=== PATIENT | female | born 1975 | race Caucasian/White ===

== ENCOUNTER 2018-04-28 17:12 | Emergency (ER) | payer BC ==
--- OUTSIDE RECORDS SUMMARY | 2018-04-28 17:13 | XMS REPORT ---
:1975 [facility] [address] [place] [address] Dr. Corley [address] [place] [id number] Care Team Providers Name Role Phone Unavailable Unavailable Unavailable Problems This patient has no known problems. Allergies, Adverse Reactions, Alerts This patient has no known allergies or adverse reactions. Medications This patient has no known medications.
[2018-04-28 18:22] LABS: Absolute Monocytes 0.7 K/uL (0.1-1.3); Absolute Neutrophil 4.5 K/uL (1.8-8.0); Basophils % 1.2 % (0-1.3); Eosinophils % 2.6 % (0-4.4); Hematocrit 47.9 % (36.0-45.0); Lymphocytes % 26.5 % (15.3-44.8); MPV 10.7 fL (7.6-11.3); Monocytes % 9.9 % (3.3-12.3); RBC Red Blood Cell Count 5.26 M/uL (3.86-4.86)
[2018-04-28 18:23] LABS: Protime INR 0.96
--- NOTE | 2018-04-28 18:24 | RAD REPORT ---
EXAM DESCRIPTION: RAD - Chest Single View - 04/28/2018 6:16 pm CLINICAL HISTORY: Palpitations COMPARISON: May 2016 TECHNIQUE: AP portable chest image was obtained 1807 hours . FINDINGS: Detail is limited by body habitus and portable technique. No peripheral consolidation. Hea rt size is normal range. Upper lobe vasculature within normal limits. Right hilum is prominent but no t clearly different from comparison. Interstitial markings are mildly prominent. No measurable pleura l effusion and no pneumothorax. No acute bony abnormality seen. No acute aortic findings suspected. IMPRESSION: Prominent interstitial markings suggesting a minimal failure or volume overload. Findings are not substantially different from May 2016.
[2018-04-28 18:34] LABS: ALT/SGPT 31 U/L (12-78); AST/SGOT 24 U/L (15-37); Albumin 3.7 g/dL (3.4-5.0); Alkaline Phosphatase 86 U/L (45-117); BUN Blood Urea Nitrogen 11 mg/dL (7-18); Bicarbonate 30 mmol/L (21-32); Bilirubin Direct < 0.1 mg/dL (0-0.2); Bilirubin Total 0.3 mg/dL (0.2-1.0); Glucose Level 91 mg/dL (74-106); Magnesium 2.2 mg/dL (1.8-2.4); NT PRO-BNP 77 pg/mL (<125); Potassium 4.4 mmol/L (3.5-5.1); Sodium Level 140 mmol/L (136-145); Troponin (Emerg Dept Use Only) < 0.02 ng/mL (0.0-0.045)
[2018-04-28 19:01] LABS: Urine Blood NEGATIVE (NEG); Urine Glucose NEGATIVE (NEG); Urine Protein NEGATIVE (NEG); Urine Specific Gravity >1.030 (1.005-1.030); Urine pH 5.5 (5.0-7.0)
--- NOTE | 2018-04-28 19:35 | ER ---
Nurse's Notes [facility] Name: Avis Adame Age: 42 yrs Sex: Female : 1975 Arrival Date: 04/28/2018 Time: 17:14 Bed 17 Private MD: Rita Pate K Diagnosis: Palpitations Presentation: 04/28 17:24 Presenting complaint: Patient states: Was working at [employer], started having sg palpitations lasting for about an hour, reports feeling dizzy with the palpitations, has a sleep study scheduled for ruling out sleep apnea, pt denies N/V/D/Fever. Transition of care: patient was not received from another setting of care. Onset of symptoms was April 28, 2018. Risk Assessment: Do you want to hurt yourself or someone else? Patient reports no desire to harm self or others. Initial Sepsis Screen: Does the patient meet any 2 criteria? No. Patient's initial sepsis screen is negative. Does the patient have a suspected source of infection? No. Patient's initial sepsis screen is negative. Care prior to arrival: None. 17:24 Method Of Arrival: Ambulatory sg 17:24 Acuity: TOO 3 sg Triage Assessment: 17:30 General: Appears in no apparent distress. comfortable, obese, Behavior is calm, bp cooperative, appropriate for age. Pain: Denies pain. 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 - Social history:: Smoking status: Patient uses tobacco products, smokes one pack cigarettes per day. - Ebola Screening: : Patient negative for fever greater than or equal to 101.5 degrees Fahrenheit, and additional compatible Ebola Virus Disease symptoms Patient denies exposure to infectious person Patient denies travel to an Ebola-affected area in the 21 days before illness onset No symptoms or risks identified at this time. Screenin:00 Abuse screen: Denies threats or abuse. Denies injuries from another. bp 18:00 Nutritional screening: No deficits noted. Tuberculosis screening: No symptoms or risk bp factors identified. Fall Risk None identified. Assessment: 17:30 General: Appears in no apparent distress. comfortable, obese, Behavior is calm, bp cooperative, appropriate for age. Pain: Denies pain. Neuro: Level of Consciousness is awake, alert, obeys commands, Oriented to person, place, time, situation, Appropriate for age. Cardiovascular: No deficits noted. Cardiovascular: Rhythm is sinus rhythm. Respiratory: Airway is patent Respiratory effort is even, unlabored, Respiratory pattern is regular, symmetrical. GI: No signs and/or symptoms were reported involving the gastrointestinal system. : No signs and/or symptoms were reported regarding the genitourinary system. EENT: No deficits noted. Derm: No deficits noted. Musculoskeletal: Circulation, motion, and sensation intact. Range of motion: intact in all extremities. 19:09 Reassessment: Patient appears in no apparent distress at this time. Patient and/or jd3 family updated on plan of care and expected duration. Pain level reassessed. Patient is alert, oriented x 3, equal unlabored respirations, skin warm/dry/pink. Patient states feeling better. 19:45 Reassessment: Patient appears in no apparent distress at this time. Patient and/or jd3 family updated on plan of care and expected duration. Pain level reassessed. Patient is alert, oriented x 3, equal unlabored respirations, skin warm/dry/pink. pt reported understanding of discharge instructions. Patient states feeling better. Vital Signs: 17:26 BP 162 / 80; Pulse 87; Resp 17; Temp 97.7; Pulse Ox 100% on R/A; sg 18:48 BP 118 / 64; Pulse 74; Resp 15; Pulse Ox 98% ; bp 19:10 BP 121 / 82; Pulse 75; Resp 19 S; Pulse Ox 97% on R/A; jd3 ED Course: 17:14 Patient arrived in ED. mr 17:15 Rita Pate MD is Private Physician. mr 17:22 Dexter Preciado NP is PHCP. pm1 17:22 Junito Arevalo MD is Attending Physician. pm1 17:24 Arm band placed on. sg 17:26 Triage completed. sg 17:33 EKG done, by auto technician mechanic. reviewed by Dexter Preciado NP. sm3 17:35 Aubrey Medina, LUIS EDUARDO is Primary Nurse. bp 18:02 Initial lab(s) drawn, by in, sent to lab. Urine collected: clean catch specimen, clear. mh5 Inserted saline lock: 20 gauge in right antecubital area, using aseptic technique. Blood collected. 18:03 Patient has correct armband on for positive identification. Placed in gown. Bed in low mh5 position. Call light in reach. Side rails up X 1. Warm blanket given. conveyor monitor on. Pulse ox on. NIBP on. 18:03 Urine --Ancillary (enter results) Sent. 5 18:03 Urine Dipstick--Ancillary (enter results) Sent. [facility] 18:03 Basic Metabolic Panel Sent. [facility] 18:03 CBC with Diff Sent. [facility] 18:03 LFT's Sent. [facility] 18:03 Magnesium Sent. [facility] 18:03 NT PRO-BNP Sent. [facility] 18:03 PT-INR Sent. [facility] 18:03 Troponin (emerg Dept Use Only) Sent. [facility] 18:16 XRAY Chest (1 view) In Process Unspecified. EDMS 19:46 No provider procedures requiring assistance completed. IV discontinued, intact, jd3 bleeding controlled, No redness/swelling at site. Pressure dressing applied. Administered Medications: No medications were administered Outcome: 19:35 Discharge ordered by MD. pm1 19:46 Discharged to home ambulatory. jd3 19:46 Condition: stable 19:46 Discharge instructions given to patient, Instructed on discharge instructions, follow up and referral plans. Demonstrated understanding of instructions, follow-up care. 19:47 Patient left the ED. jd3 Signatures: Dispatcher [employer] EDMS Eder Ruvalcaba RN RN sg Rivera, Mary mr Dexter Preciado, FABIENNE BEAUTY CULTURE TEACHER pm1 Valentine Nieves [facility] Jakub Hayden RN RN jd3 Peltier, Brian, RN RN bp Montes, Shakira 3
--- NOTE | 2018-04-28 19:36 | EDPHYS ---
Physician Documentation [facility] Name: Avis Adame Age: 42 yrs Sex: Female : 1975 Arrival Date: 04/28/2018 Time: 17:14 Bed 17 Private MD: Rita Pate K ED Physician Juntio Arevalo HPI: 04/28 18:12 This 42 yrs old Female presents to ER via Ambulatory with complaints of pm1 Palpitations. 18:12 The patient presents with a history of heart skipping beats. Context: The symptoms pm1 occur at work. Onset: The symptoms/episode began/occurred 1 hour(s) ago. Duration: The patient or guardian reports a single episode, that is now resolved. Modifying factors: The symptoms are aggravated by possibly cough medications she has been taking for cough and cold symptoms. Drinking tea at work. Associated signs and symptoms: Pertinent positives: dizziness, Pertinent negatives: anxiety, chest pain, fever, nausea, SOB, vomiting. Severity of symptoms: in the emergency department the symptoms have resolved Pain is currently a 0 / 10. The patient has not experienced similar symptoms in the past. The patient has not recently seen a physician. 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 - Social history:: Smoking status: Patient uses tobacco products, smokes one pack cigarettes per day. - Ebola Screening: : Patient negative for fever greater than or equal to 101.5 degrees Fahrenheit, and additional compatible Ebola Virus Disease symptoms Patient denies exposure to infectious person Patient denies travel to an Ebola-affected area in the 21 days before illness onset No symptoms or risks identified at this time. ROS: 18:12 Constitutional: Negative for fever, chills, and weight loss, Eyes: Negative for injury, pm1 pain, redness, and discharge, ENT: Negative for injury, pain, and discharge, Neck: Negative for injury, pain, and swelling, Respiratory: Negative for shortness of breath, cough, wheezing, and pleuritic chest pain, Abdomen/GI: Negative for abdominal pain, nausea, vomiting, diarrhea, and constipation. 18:12 Back: Negative for injury and pain, : Negative for injury, bleeding, discharge, and swelling, MS/Extremity: Negative for injury and deformity, Skin: Negative for injury, rash, and discoloration, Neuro: Negative for headache, weakness, numbness, tingling, and seizure. 18:12 Cardiovascular: Positive for palpitations, Negative for chest pain, edema, orthopnea. Exam: 18:12 Constitutional: This is a well developed, well nourished patient who is awake, alert, pm1 and in no acute distress. Head/Face: Normocephalic, atraumatic. Eyes: Pupils equal round and reactive to light, extra-ocular motions intact. Lids and lashes normal. Conjunctiva and sclera are non-icteric and not injected. Cornea within normal limits. Periorbital areas with no swelling, redness, or edema. ENT: Nares patent. No nasal discharge, no septal abnormalities noted. Tympanic membranes are normal and external auditory canals are clear. Oropharynx with no redness, swelling, or masses, exudates, or evidence of obstruction, uvula midline. Mucous membranes moist. Neck: Trachea midline, no thyromegaly or masses palpated, and no cervical lymphadenopathy. Supple, full range of motion without nuchal rigidity, or vertebral point tenderness. No Meningismus. Chest/axilla: Normal chest wall appearance and motion. Nontender with no deformity. No lesions are appreciated. Cardiovascular: Regular rate and rhythm with a normal S1 and S2. No gallops, murmurs, or rubs. Normal PMI, no JVD. No pulse deficits. Respiratory: Lungs have equal breath sounds bilaterally, clear to auscultation and percussion. No rales, rhonchi or wheezes noted. No increased work of breathing, no retractions or nasal flaring. Abdomen/GI: Soft, non-tender, with normal bowel sounds. No distension or tympany. No guarding or rebound. No evidence of tenderness throughout. Back: No spinal tenderness. No costovertebral tenderness. Full range of motion. Skin: Warm, dry with normal turgor. Normal color with no rashes, no lesions, and no evidence of cellulitis. MS/ Extremity: Pulses equal, no cyanosis. Neurovascular intact. Full, normal range of motion. 18:12 Neuro: Orientation: is normal, Motor: is normal, moves all fours. 18:15 NSR Rate:78 pm1 Vital Signs: 17:26 BP 162 / 80; Pulse 87; Resp 17; Temp 97.7; Pulse Ox 100% on R/A; sg 18:48 BP 118 / 64; Pulse 74; Resp 15; Pulse Ox 98% ; bp 19:10 BP 121 / 82; Pulse 75; Resp 19 S; Pulse Ox 97% on R/A; jd3 MDM: 17:22 Patient medically screened. pm1 19:34 Data reviewed: vital signs. Data interpreted: Pulse oximetry: on room air is 97 %. pm1 Interpretation: normal. Counseling: I had a detailed discussion with the patient and/or guardian regarding: the historical points, exam findings, and any diagnostic results supporting the discharge/admit diagnosis, lab results, radiology results, the need for outpatient follow up, to return to the emergency department if symptoms worsen or persist or if there are any questions or concerns that arise at home. 04/28 17:27 Order name: Basic Metabolic Panel; Complete Time: 18:37 pm04/28 17:27 Order name: CBC with Diff 04/28 17:27 Order name: LFT's; Complete Time: 18:37 pm04/28 17:27 Order name: Magnesium; Complete Time: 18:37 pm04/28 17:27 Order name: NT PRO-BNP; Complete Time: 18:37 pm04/28 17:27 Order name: PT-INR; Complete Time: 18:37 04/28 17:27 Order name: Troponin (emerg Dept Use Only); Complete Time: 18:37 pm04/28 17:27 Order name: XRAY Chest (1 view); Complete Time: 18:37 pm04/28 17:27 Order name: EKG; Complete Time: 17:29 pm04/28 17:27 Order name: Cardiac monitoring; Complete Time: 17:46 pm04/28 17:27 Order name: EKG - Nurse/Tech; Complete Time: 17:46 04/28 17:47 Order name: Urine Dipstick--Ancillary (enter results); Complete Time: 19:20 em04/28 17:47 Order name: Urine --Ancillary (enter results); Complete Time: 19:20 04/28 18:38 Order name: CBC Smear Scan EDID 04/28 17:27 Order name: IV Saline Lock; Complete Time: 17:47 pm1 04/28 17:27 Order name: Labs collected and sent; Complete Time: 17:46 pm1 04/28 17:27 Order name: O2 Per Protocol; Complete Time: 17:46 pm1 04/28 17:27 Order name: O2 Sat Monitoring; Complete Time: 17:46 pm1 04/28 17:27 Order name: Urine Dipstick-Ancillary (obtain specimen); Complete Time: 17:45 pm1 04/28 17:27 Order name: Urine Test (obtain specimen); Complete Time: 17:45 pm1 Administered Medications: No medications were administered Disposition: 04/29 07:09 Co-signature as Attending Physician, Junito Arevalo MD I agree with the assessment and criss plan of care. Disposition: 04/28/18 19:35 Discharged to Home. Impression: Palpitations. - Condition is Stable. - Discharge Instructions: Holter Monitoring, Palpitations. - Medication Reconciliation Form, Thank You Letter form. - Follow up: Emergency Department; When: As needed; Reason: Worsening of condition. Follow up: Private Physician; When: 2 - 3 days; Reason: Recheck today's complaints, Continuance of care, Re-evaluation by your physician. - Problem is new. - Symptoms have improved. Signatures: Dispatcher [employer] [facility] Eder Ruvalcaba, Junito Guthrie RN, MD MD cha Marinas, Patrick, STITCHING MACHINE OPERATOR STITCHING MACHINE OPERATOR pm1 Jakub Hayden RN RN jd3 Corrections: (The following items were deleted from the chart) 04/28 19:47 19:35 04/28/2018 19:35 Discharged to Home. Impression: Palpitations. Condition is jd3 Stable. Forms are Medication Reconciliation Form, Thank You Letter, Antibiotic Education, Prescription Opioid Use. Follow up: Emergency Department; When: As needed; Reason: Worsening of condition. Follow up: Private Physician; When: 2 - 3 days; Reason: Recheck today's complaints, Continuance of care, Re-evaluation by your physician. Problem is new. Symptoms have improved. pm1
[2018-04-28 19:57] LABS: Platelet Estimate DECR; Urine White Blood Cell Casts OK
[2018-04-28 19:58] LABS: Blood Morphology Comment NOT SEEN (NOT SEEN); Platelets, Giant NOTED
[2018-04-28 21:37] VITALS: TEMP 97.7
[2018-04-28 21:39] VITALS: BP 121/82; O2SAT 97
--- NOTE | 2018-04-29 06:24 | EKG ---
Test Date: 2018-04-28 Test Time: 17:26:19 Mine Safety Engineer: EDUARD MEASUREMENT RESULTS: Intervals: Rate: 78 KS: 180 QRSD: 90 QT: 386 QTc: 440 [place]: P: 49 KS: 180 QRS: 85 T: 60 INTERPRETIVE STATEMENTS: Normal sinus rhythm Normal ECG Compared to ECG 06/06/2016 17:28:53 No significant changes Electronically Signed On 04-29-18 06:13:[address] SWEEPER by Bret Zee
== END 2018-04-28 19:47 | disposition home or self-care (01) ==
LOC: ER 17:12
DX: R00.2 Palpitations (principal); F17.210 Nicotine dependence, cigarettes, uncomplicated; E03.9 Hypothyroidism, unspecified; Z88.8 Allergy status to other drugs, medicaments and biological substances
CPT/HCPCS: 36415; 71045; 80048; 80076; 81003; 81025; 83735; 83880; 84484; 85025; 85610; 93005; 99284

== ENCOUNTER 2018-08-21 11:17 | Emergency (ER) | payer BC ==
--- OUTSIDE RECORDS SUMMARY | 2018-08-21 11:19 | XMS REPORT ---
:1975 [facility] [address] [place] [address] Dr. Corley [address] [place] [id number] Care Team Providers Name Role Phone Unavailable Unavailable Unavailable Problems This patient has no known problems. Allergies, Adverse Reactions, Alerts This patient has no known allergies or adverse reactions. Medications This patient has no known medications.
--- NOTE | 2018-08-21 12:46 | ER ---
Nurse's Notes [facility] Name: Avis Adame Age: 43 yrs Sex: Female : 1975 Arrival Date: 08/21/2018 Time: 11:18 Bed 17 Private MD: Rita Pate K Diagnosis: Cutaneous abscess of face-Post auricular with anterior and post auricular lymphadenopathy Presentation: 08/21 11:33 Presenting complaint: Patient states: "A week and a half ago I started getting lump aj1 right here (pt points to right side of neck) and then I got one behind my ear and my ear feels full, and it hurts when I lay on it. I've been having where I can feel my heart beating in my chest so I've been checking my blood pressure and its been high. I was going to wait until Wednesday to call my doctor but my blood pressure being high scared me" Reports that she has been having palpitations for the past 3 days. Transition of care: patient was not received from another setting of care. Onset of symptoms was August 17, 2017. Risk Assessment: Do you want to hurt yourself or someone else? Patient reports no desire to harm self or others. Initial Sepsis Screen: Does the patient meet any 2 criteria? No. Patient's initial sepsis screen is negative. Does the patient have a suspected source of infection? No. Patient's initial sepsis screen is negative. Care prior to arrival: None. 11:33 Method Of Arrival: Ambulatory aj1 11:33 Acuity: TOO 3 aj1 Triage Assessment: 11:37 General: Appears in no apparent distress. uncomfortable, Behavior is cooperative, aj1 agitated. Pain: Complains of pain in right ear. EENT: Reports ear pain. Neuro: Level of Consciousness is awake, alert, obeys commands. Cardiovascular: Reports palpitations, Denies chest pain, Patient's skin is warm and dry. Respiratory: Airway is patent Respiratory effort is even, unlabored, Respiratory pattern is regular, symmetrical. 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 - Social history:: Smoking status: Patient uses tobacco products, smokes one pack cigarettes per day. - Ebola Screening: : Patient denies travel to an Ebola-affected area in the 21 days before illness onset. Screenin:11 Abuse screen: Denies threats or abuse. Nutritional screening: No deficits noted. em Tuberculosis screening: No symptoms or risk factors identified. Fall Risk None identified. Assessment: 13:11 General: Appears in no apparent distress. comfortable, Behavior is calm, cooperative, em Denies fever. Pain: Complains of pain in right ear Pain currently is 5 out of 10 on a pain scale. Pain began 1 day ago. Neuro: Level of Consciousness is awake, alert, obeys commands, Oriented to person, place, time, situation, Moves all extremities. Gait is steady, Speech is normal, Facial symmetry appears normal. Cardiovascular: Capillary refill < 3 seconds Patient's skin is warm and dry. Respiratory: Airway is patent Respiratory effort is even, unlabored, Respiratory pattern is regular, symmetrical. GI: Patient currently denies nausea, vomiting. Derm: Skin is intact, is healthy with good turgor, Skin is pink, warm \\T\\ dry. Wound noted right ear. Musculoskeletal: Capillary refill < 3 seconds, Range of motion: intact in all extremities. 13:15 General: The previous assessment is accurate. Call light remains within reach. . ss Vital Signs: 11:37 BP 160 / 99; Pulse 88; Resp 18; Temp 98.4; Pulse Ox 98% on R/A; Weight 126.1 kg (R); aj1 Height 5 ft. 7 in. (170.18 cm) (R); Pain 5/10; 13:11 BP 134 / 83; Pulse 78; Resp 18; Pulse Ox 99% on R/A; em 11:37 Body Mass Index 43.54 (126.10 kg, 170.18 cm) aj1 ED Course: 11:18 Patient arrived in ED. as 11:19 Rita Pate MD is Private Physician. as 11:36 Triage completed. aj1 11:37 Arm band placed on Patient placed in waiting room. EKG completed in triage. Results aj1 shown to MD. 12:18 [facility] snw 12:18 Junito Arevalo MD is Attending Physician. snw 12:43 Chau Green LVN is Primary Nurse. em 12:44 Rita Pate MD is Referral Physician. snw 13:11 Patient has correct armband on for positive identification. Bed in low position. em 13:11 No provider procedures requiring assistance completed. Patient did not have IV access em during this emergency room visit. Administered Medications: 13:11 Drug: Clindamycin 300 mg Route: PO; em 13:12 Follow up: Response: Medication administered at discharge. em Outcome: 12:45 Discharge ordered by MD. snw 13:11 Discharged to home ambulatory. em 13:11 Condition: good 13:11 Discharge instructions given to patient, Instructed on discharge instructions, follow up and referral plans. medication usage, Demonstrated understanding of instructions, follow-up care, medications, Prescriptions given X 1. 13:27 Patient left the ED. em Signatures: Noemí Gomez, RN RN aj1 Ruth Cruz FNP-Jorge HR SHARED SERVICES CONSULTANT-Cs[facility] Chau Green LVN LVN em Keyana Nieves Shelby, RN RN ss
--- NOTE | 2018-08-21 12:46 | EDPHYS ---
Physician Documentation [facility] Name: Avis Adame Age: 43 yrs Sex: Female : 1975 Arrival Date: 08/21/2018 Time: 11:18 Bed 17 Private MD: Rita Pate K ED Physician Junito Arevalo HPI: 08/21 14:32 This 43 yrs old Female presents to ER via Ambulatory with complaints of Ear snw Pain, High Blood Pressure. 14:32 The patient presents with pain, moderate. The complaints affect the right ear. Onset: snw The symptoms/episode began/occurred suddenly. Associated signs and symptoms: Pertinent positives: noted knot to area behind ear, down right neck. Pt states she has been nervous and having palpitations.. Severity of symptoms: At their worst the symptoms were moderate. The patient has not experienced similar symptoms in the past. It is unknown whether or not the patient has recently seen a physician. encouraged blood pressure log, smoking cessation. 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 - Social history:: Smoking status: Patient uses tobacco products, smokes one pack cigarettes per day. - Ebola Screening: : Patient denies travel to an Ebola-affected area in the 21 days before illness onset. ROS: 14:20 Constitutional: Negative for fever, chills, and weight loss, Eyes: Negative for injury, snw pain, redness, and discharge, Cardiovascular: Negative for chest pain, palpitations, and edema, Respiratory: Negative for shortness of breath, cough, wheezing, and pleuritic chest pain, Abdomen/GI: Negative for abdominal pain, nausea, vomiting, diarrhea, and constipation, Back: Negative for injury and pain, : Negative for injury, bleeding, discharge, and swelling, MS/Extremity: Negative for injury and deformity, Skin: Negative for injury, rash, and discoloration, Neuro: Negative for headache, weakness, numbness, tingling, and seizure, Psych: Negative for depression, anxiety, suicide ideation, homicidal ideation, and hallucinations. 14:20 Neck: Positive for swollen nodes, of the right anterior lymphadenopathy and right post auricular lymph node. Exam: 14:20 Constitutional: This is a well developed, well nourished patient who is awake, alert, snw and in no acute distress. Head/Face: Normocephalic, atraumatic. Eyes: Pupils equal round and reactive to light, extra-ocular motions intact. Lids and lashes normal. Conjunctiva and sclera are non-icteric and not injected. Cornea within normal limits. Periorbital areas with no swelling, redness, or edema. Neck: Trachea midline, no thyromegaly or masses palpated, and no cervical lymphadenopathy. Supple, full range of motion without nuchal rigidity, or vertebral point tenderness. No Meningismus. Chest/axilla: Normal chest wall appearance and motion. Nontender with no deformity. No lesions are appreciated. Cardiovascular: Regular rate and rhythm with a normal S1 and S2. No gallops, murmurs, or rubs. Normal PMI, no JVD. No pulse deficits. Respiratory: Lungs have equal breath sounds bilaterally, clear to auscultation and percussion. No rales, rhonchi or wheezes noted. No increased work of breathing, no retractions or nasal flaring. Abdomen/GI: Soft, non-tender, with normal bowel sounds. No distension or tympany. No guarding or rebound. No evidence of tenderness throughout. Back: No spinal tenderness. No costovertebral tenderness. Full range of motion. Skin: Warm, dry with normal turgor. Normal color with no rashes, no lesions, and no evidence of cellulitis. MS/ Extremity: Pulses equal, no cyanosis. Neurovascular intact. Full, normal range of motion. Neuro: Awake and alert, GCS 15, oriented to person, place, time, and situation. Cranial nerves II-XII grossly intact. Motor strength 5/5 in all extremities. Sensory grossly intact. Cerebellar exam normal. Normal gait. 14:20 ENT: External ear(s): abscess, that is small, posterior pinna of right ear, + post auricular and anterior cervical lymphadenopathy, TM's: dullness, loss of bony landmarks, that is moderate, on the right, Nose: is normal, Mouth: is normal, Dental exam: normal, Voice: is normal. 14:20 Psych: Behavior/mood is anxious, Affect is calm, Oriented to person, place, time. Vital Signs: 11:37 BP 160 / 99; Pulse 88; Resp 18; Temp 98.4; Pulse Ox 98% on R/A; Weight 126.1 kg (R); aj1 Height 5 ft. 7 in. (170.18 cm) (R); Pain 5/10; 13:11 BP 134 / 83; Pulse 78; Resp 18; Pulse Ox 99% on R/A; em 11:37 Body Mass Index 43.54 (126.10 kg, 170.18 cm) aj1 Procedures: 14:32 I \T\ D: Incision and drainage was performed for an abscess of the right posterior pinna snw Prepped with hibiclens. Anesthetized with nothing. Incised with 18g needle. Drained moderate amount large amount purulent fluid. Dressing: sterile 4x4 gauze, the patient tolerated the procedure well. MDM: 12:30 Patient medically screened. snw 14:31 Data reviewed: vital signs, nurses notes. Data interpreted: Pulse oximetry: on room air snw is 99 %. Interpretation: normal. Counseling: I had a detailed discussion with the patient and/or guardian regarding: the historical points, exam findings, and any diagnostic results supporting the discharge/admit diagnosis, the presence of at least one elevated blood pressure reading (>120/80) during this emergency department visit, the need for outpatient follow up, to return to the emergency department if symptoms worsen or persist or if there are any questions or concerns that arise at home. Special discussion: I have referred the patient to see his PCP for further evaluation of high blood pressure. I discussed in detail with the patient the higher chance of wound infection based on his presenting history. Based on the history and exam findings, there is no indication for further emergent testing or inpatient evaluation. I discussed with the patient/guardian the need to see the primary care provider for further evaluation of the symptoms. 08/21 12:43 Order name: Wound dressing; Complete Time: 13:12 snw Administered Medications: 13:11 Drug: Clindamycin 300 mg Route: PO; em 13:12 Follow up: Response: Medication administered at discharge. em Disposition: 08/22 06:47 Co-signature as Attending Physician, Junito Arevalo MD I agree with the assessment and criss plan of care. Disposition: 08/21/18 12:45 Discharged to Home. Impression: Cutaneous abscess of face - Post auricular with anterior and post auricular lymphadenopathy. - Condition is Stable. - Discharge Instructions: Skin Abscess, Fat and Cholesterol Restricted Diet, Otitis Media, Adult, Hypertension, Steps to Quit Smoking, Smoking Hazards, Heat Therapy, Managing Your Hypertension. - Prescriptions for Clindamycin HCl 300 mg Oral Capsule - take 1 capsule by ORAL route every 6 hours for 10 days; 40 capsule. - Medication Reconciliation Form, Thank You Letter, Antibiotic Education, Prescription Opioid Use form. - Follow up: Rita Pate MD; When: 2 - 3 days; Reason: Recheck today's complaints, Continuance of care, Re-evaluation by your physician. Follow up: Emergency Department; When: As needed; Reason: Worsening of condition. - Notes: Please keep blood pressure log. Signatures: Noemí Gomez RN RN Junito Castro MD MD cha Therrien, Shelly, ASSISTED LIVING HOME DIRECTOR-C ASSISTED LIVING HOME DIRECTOR-Csnw Chau Green, OPERATIONS ADMINISTRATOR OPERATIONS ADMINISTRATOR em Corrections: (The following items were deleted from the chart) 08/21 13:27 12:45 08/21/2018 12:45 Discharged to Home. Impression: Cutaneous abscess of face - Post em auricular with anterior and post auricular lymphadenopathy. Condition is Stable. Forms are Medication Reconciliation Form, Thank You Letter, Antibiotic Education, Prescription Opioid Use. Follow up: Rita Pate; When: 2 - 3 days; Reason: Recheck today's complaints, Continuance of care, Re-evaluation by your physician. Follow up: Emergency Department; When: As needed; Reason: Worsening of condition. snw
[2018-08-21] MEDS ORDERED: CLINDAMYCIN HCL 150 MG CAP ONE (13:12)
[2018-08-21 13:43] VITALS: TEMP 98.4
[2018-08-21 13:45] VITALS: BP 134/83; O2SAT 99
--- NOTE | 2018-08-22 08:48 | EKG ---
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
== END 2018-08-21 13:27 | disposition home or self-care (01) ==
LOC: ER 11:17
PROC: 0J910ZZ Drainage of Face Subcutaneous Tissue and Fascia, Open Approach (ICD-10-PCS; principal; 2018-08-21)
DX: R59.0 Localized enlarged lymph nodes (principal); L02.01 Cutaneous abscess of face
CPT/HCPCS: 93005; 99283

== ENCOUNTER 2019-06-27 21:04 | Emergency (ER) | payer BC ==
--- OUTSIDE RECORDS SUMMARY | 2019-06-27 21:06 | XMS REPORT ---
:1975 [facility] Address [address] [place] [address] Dr. Corley [address] [place] [address] Care Team Providers Name Role Phone Unavailable Unavailable Unavailable Problems This patient has no known problems. Allergies, Adverse Reactions, Alerts This patient has no known allergies or adverse reactions. Medications This patient has no known medications.
--- OUTSIDE RECORDS SUMMARY | 2019-06-27 21:06 | XMS REPORT | Summary of Care ---
:1975 Author Organization [facility] Address [address] [place] [address] Care Team Providers Name Role Phone Matthew Pate Primary Care Provider Reason for Visit Reason Comments Notification The patient would like her CPAP machine moved up from an 11 to 12 or 13. Encounter Details Date Type Department Care Team Description 11/25/2018 Telephone [facility] ADC Shayla Armstrong Notification ([facility] [address] patient would like her [address] [place] [address] Dr., Salo 106 CPAP machine moved up [address] [place] [address] from an 11 to 12 or 13. [place], [place] [phone] ) [phone] [phone] Allergies No Known Allergiesdocumented as of this encounter (statuses as of 11/25/2018) Medications No known medicationsdocumented as of this encounter (statuses as of 11/25/2018) Active Problems Not on filedocumented as of this encounter (statuses as of 11/25/2018) Social History Tobacco Use Types Packs/Day Years Used Date Never Smoker Smokeless Tobacco: Never Used Alcohol Use Drinks/Week oz/Week Comments No Sex Assigned at Date Recorded Not on file Job Start Date Occupation Industry Not on file Not on file Not on file Travel History Travel Start Travel End No recent travel history available. documented as of this encounter Last Filed Vital Signs Not on filedocumented in this encounter Plan of Treatment Health Maintenance Due Date Last Done Comments DTaP,Tdap,and Td Vaccines ( - 1993 Tdap) PAP SMEAR 07/05/1995 MAMMOGRAM 2014 INFLUENZA VACCINE 12/18/2018 PNEUMOCOCCAL 0-64 YEARS COMBINED Aged Out No longer eligible based on SERIES patient's age to complete this topic documented as of this encounter Results Not on filedocumented in this encounter Insurance Payer Benefit Plan Subscriber ID Effective Dates Phone Address Type / Group BCBS OF [facility] [id number] 2017-Juanito [phone] [address] PPO/POS [place] t [id number] [place] [address] documented as of this encounter
--- OUTSIDE RECORDS SUMMARY | 2019-06-27 21:06 | XMS REPORT | Summary of Care ---
:1975 Author Organization [facility] Health Address [address] [place] [address] Care Team Providers Name Role Phone Unavailable Primary Care Provider Unavailable Encounter Details Date Type Department Care Team Description 11/29/2018 Orders Only [facility] Doctor Unassigned, No [address] [facility] [place] [address] [address] [place] [address] Allergies No Known Allergiesdocumented as of this encounter (statuses as of 11/29/2018) Medications No known medicationsdocumented as of this encounter (statuses as of 11/29/2018) Active Problems Not on filedocumented as of this encounter (statuses as of 11/29/2018) Social History Tobacco Use Types Packs/Day Years [...] Date Last Done Comments DTaP,Tdap,and Td Vaccines (1 - 1993 Tdap) PAP SMEAR 07/05/1995 MAMMOGRAM 2014 INFLUENZA VACCINE 12/18/2018 PNEUMOCOCCAL 0-64 YEARS COMBINED Aged Out No longer eligible based on SERIES patient's age to complete this topic documented as of this encounter Procedures Procedure Name Priority Date/Time Associated Diagnosis Comments DME/SUPPLY JUSTIFICATION Routine 11/29/2018 12:01 AM CDT documented in this encounter Results Not on filedocumented in this encounter Insurance Payer Benefit Plan Subscriber ID Effective Dates Phone Address Type / Group [id number] 2017-Juanito [phone] [address] PPO/POS [place] t [id number] [place] [address] documented as of this encounter
--- OUTSIDE RECORDS SUMMARY | 2019-06-27 21:06 | XMS REPORT | Summary of Care ---
:1975 Author Organization [facility] Address [address] [place] [address] Care Team Providers Name Role Phone Unavailable Primary Care Provider Unavailable Reason for Visit Reason Comments Notification The patient would like her CPAP machine moved up from an 11 to 12 or 13. Encounter Details Date Type Department Care Team Description 11/25/2018 Telephone [facility] [employer] ADC Shayla Armstrong Notification ([facility] [address] [place] [address] Dr patient would like her [address] [place] [address] DrHolger, [address] 106 CPAP machine moved up [address] [place] [address] from an 11 to 12 or 13. [place], [place] [phone] ) [phone] Allergies No Known Allergiesdocumented as of this [...] Phone Address Type / Group BCBS OF BCBS [facility] [id number] 2017-Juanito [phone] [address] PPO/POS [place] t [id number] [place] [address] documented as of this encounter
--- OUTSIDE RECORDS SUMMARY | 2019-06-27 21:06 | XMS REPORT | Summary of Care ---
:1975 Author Organization [facility] Address [address] [place] [address] Care Team Providers Name Role Phone Unavailable Primary Care Provider Unavailable Reason for Visit Reason Comments Notification The patient would like her CPAP machine moved up from an 11 to 12 or 13. Encounter Details Date Type Department Care Team Description 11/25/2018 Telephone [facility] [employer] ADC Shayla Armstrong Notification ([facility] [address] [place] [address] Dr patient would like her [address] [place] [address] DrHolger, Salo 106 CPAP machine moved up [address] [place] [address] from an 11 to 12 or 13. [place], [place] [phone] ) [phone] Allergies No Known Allergiesdocumented as of this [...] Address Type / Group BCBS OF BCBS [facility] [id number] 2017-Juanito [phone] [address] PPO/POS [place] t [id number] [place] [address] documented as of this encounter
[2019-06-27 22:12] LABS: Protime INR 0.91
--- NOTE | 2019-06-27 22:37 | RAD REPORT ---
EXAM DESCRIPTION: RAD - Chest Single View - 06/27/2019 9:56 pm CLINICAL HISTORY: PAIN Chest pain. COMPARISON: Chest Single View dated 04/28/2018; Chest Single View dated 06/06/2016; Chest Single View dated 03/30/2016; Chest Single View dated 03/28/2016 FINDINGS: Portable technique limits examination quality. The lungs are grossly clear. The heart is normal in size. No displaced fractures. IMPRESSION: No acute intrathoracic process suspected.
[2019-06-27 23:23] LABS: Absolute Lymphocytes (CBC) 4.2 K/uL (0.7-4.9); Basophils % 1.2 % (0-1.3); Hematocrit 44.4 % (36.0-45.0); Lymphocytes % 37.3 % (15.3-44.8); MPV 11.6 fL (7.6-11.3); RBC Red Blood Cell Count 4.91 M/uL (3.86-4.86)
[2019-06-27 23:39] LABS: ALT/SGPT 32 U/L (12-78); AST/SGOT 23 U/L (15-37); Albumin 3.3 g/dL (3.4-5.0); Alkaline Phosphatase 77 U/L (45-117); BUN Blood Urea Nitrogen 10 mg/dL (7-18); Bicarbonate 30 mmol/L (21-32); Bilirubin Direct < 0.1 mg/dL (0-0.2); Bilirubin Total 0.2 mg/dL (0.2-1.0); Glucose Level 115 mg/dL (74-106); Magnesium 2.1 mg/dL (1.8-2.4); NT PRO-BNP 57 pg/mL (<125); Potassium 4.4 mmol/L (3.5-5.1); Protein, Total 7.2 g/dL (6.4-8.2); Sodium Level 140 mmol/L (136-145); Troponin (Emerg Dept Use Only) < 0.02 ng/mL (0.0-0.045)
--- NOTE | 2019-06-28 01:08 | ER ---
Nurse's Notes [facility] Name: Avis Adame Age: 43 yrs Sex: Female : 1975 Arrival Date: 06/27/2019 Time: 21:04 Bed 20 Private MD: Diagnosis: Presentation: 06/26 21:20 Chief complaint: Patient states: "I have been having chest pain for 3 days now and have jd3 been feeling more and more weak.". Coronavirus screen: The patient has NOT traveled to a country currently being monitored by the [facility] within the last 14 days. The patient has NOT had contact with any known and/or suspected case of coronavirus. Proceed with normal triage procedures. Ebola Screen: Patient negative for fever greater than or equal to 101.5 degrees Fahrenheit, and additional compatible Ebola Virus Disease symptoms. Initial Sepsis Screen: Does the patient meet any 2 criteria? No. Patient's initial sepsis screen is negative. Does the patient have a suspected source of infection? No. Patient's initial sepsis screen is negative. Risk Assessment: Do you want to hurt yourself or someone else? Patient reports no desire to harm self or others. 21:20 Method Of Arrival: Ambulatory j 21:20 Acuity: TOO 3 jd3 22:29 Onset of symptoms was June 27, 2019. 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 - Social history:: Smoking status: Patient reports the use of cigarette tobacco products, smokes one pack cigarettes per day. Screenin:28 Abuse screen: Denies threats or abuse. Nutritional screening: No deficits noted. jd3 Tuberculosis screening: No symptoms or risk factors identified. Fall Risk IV access (20 points). Ambulatory Aid- None/Bed Rest/Nurse Assist (0 pts). Gait- Normal/Bed Rest/Wheelchair (0 pts) Mental Status- Oriented to own ability (0 pts). Total Mcmillna Fall Scale indicates No Risk (0-24 pts). Assessment: 22:26 General: Appears in no apparent distress. uncomfortable, Behavior is calm, cooperative, jd3 appropriate for age. Pain: Complains of pain in chest Pain does not radiate. Pain began 2-3 days ago. Neuro: Level of Consciousness is awake, alert, obeys commands, Oriented to person, place, time, situation. Cardiovascular: Reports chest pain, Heart tones S1 S2 present Capillary refill < 3 seconds Patient's skin is warm and dry. Rhythm is regular. Respiratory: Airway is patent Respiratory effort is even, unlabored, Respiratory pattern is regular, symmetrical, Denies cough, shortness of breath. GI: No signs and/or symptoms were reported involving the gastrointestinal system. : No signs and/or symptoms were reported regarding the genitourinary system. EENT: No signs and/or symptoms were reported regarding the EENT system. Derm: Skin is intact, Skin is dry, Skin is normal, Skin temperature is warm. Musculoskeletal: Circulation, motion, and sensation intact. Range of motion: intact in all extremities. 23:41 Reassessment: Patient appears in no apparent distress at this time. No changes from jd3 previously documented assessment. Patient and/or family updated on plan of care and expected duration. Pain level reassessed. Patient is alert, oriented x 3, equal unlabored respirations, skin warm/dry/pink. 06/27 00:46 Reassessment: Patient appears in no apparent distress at this time. Patient and/or jd3 family updated on plan of care and expected duration. Pain level reassessed. Patient is alert, oriented x 3, equal unlabored respirations, skin warm/dry/pink. awaiting disposition. 01:04 Reassessment: Patient appears in no apparent distress at this time. Patient and/or jd3 family updated on plan of care and expected duration. Pain level reassessed. Patient is alert, oriented x 3, equal unlabored respirations, skin warm/dry/pink. pt reporting wanting to go home. provider notified. AMA form signed. Vital Signs: 06/26 21:22 Weight 117.93 kg (R); Height 5 ft. 8 in. (172.72 cm) (R); Pain 5/10; jd3 21:30 BP 133 / 69; Pulse 75; Resp 19; Temp 98.3(O); Pulse Ox 98% ; lt1 22:26 BP 130 / 66; Pulse 76; Resp 20 S; Pulse Ox 95% on R/A; Pain /10; jd3 23:42 BP 124 / 72; Pulse 74; Resp 18 S; Pulse Ox 96% on R/A; jd3 06/27 00:47 BP 130 / 75; Pulse 62; Resp 17 S; Pulse Ox 97% on R/A; jd3 06/26 21:22 Body Mass Index 39.53 (117.93 kg, 172.72 cm) jd3 ED Course: 06/26 21:04 Patient arrived in ED. cl3 21:15 Jose East MD is Attending Physician. tw4 21:20 Triage completed. jd3 21:23 Arm band placed on. EKG completed in triage. Results shown to MD. jd3 21:54 Initial lab(s) drawn, by me, sent to lab. Inserted saline lock: 22 gauge in right lt1 forearm, using aseptic technique. 21:57 XRAY Chest (1 view) In Process Unspecified. EDMS 22:18 Jakub Hayden, RN is Primary Nurse. jd3 22:29 Patient has correct armband on for positive identification. Placed in gown. Bed in low jd3 position. Call light in reach. Side rails up X 1. Adult w/ patient. cardiac monitor technician on. Pulse ox on. NIBP on. 22:29 Patient maintains SpO2 saturation greater than 95% on room air. jd3 06/27 01:05 No provider procedures requiring assistance completed. IV discontinued, intact, jd3 bleeding controlled, No redness/swelling at site. Pressure dressing applied. Administered Medications: No medications were administered Outcome: 01:05 AMA AMA form signed jd3 01:05 Condition: stable 01:05 Instructed on follow up and referral plans. Demonstrated understanding of follow-up care. 01:06 Patient left the ED. jd3 Signatures: Dispatcher [employer] EDJakub Galarza, LUIS EDUARDO RN j Jose East MD MD tw4 Ketty Escobar lt1 Mini Quintanilla cl3 Corrections: (The following items were deleted from the chart) 00:48 00:47 BP 124 / 72; Pulse 62bpm; Resp 17bpm; Spontaneous; Pulse Ox 97% RA; jd3 jd3
--- NOTE | 2019-06-28 01:09 | EDPHYS ---
Physician Documentation [facility] Name: Avis Adame Age: 43 yrs Sex: Female : 1975 Arrival Date: 06/27/2019 Time: 21:04 Bed 20 Private MD: ED Physician Jose East HPI: 06/26 21:19 This 43 yrs old Female presents to ER via Unassigned with complaints of Chest tw4 Pain. 21:19 The patient or guardian reports chest pain that is located primarily in the anterior tw4 chest wall, left. Onset: 3 day(s) ago. The pain does not radiate. Associated signs and symptoms: The patient has no apparent associated signs or symptoms. The chest pain is described as dull. Duration: The patient or guardian reports a single episode. Modifying factors: The symptoms are alleviated by nothing. the symptoms are aggravated by nothing. Severity of pain: At its worst the pain was mild in the emergency department the pain is unchanged. 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 - Social history:: Smoking status: Patient reports the use of cigarette tobacco products, smokes one pack cigarettes per day. ROS: 21:19 Constitutional: Negative for fever, chills, and weight loss, Eyes: Negative for injury, tw4 pain, redness, and discharge, Neck: Negative for injury, pain, and swelling, Respiratory: Negative for shortness of breath, cough, wheezing, and pleuritic chest pain, Abdomen/GI: Negative for abdominal pain, nausea, vomiting, diarrhea, and constipation, Back: Negative for injury and pain, MS/Extremity: Negative for injury and deformity, Skin: Negative for injury, rash, and discoloration, Neuro: Negative for headache, weakness, numbness, tingling, and seizure. 21:19 Cardiovascular: Positive for chest pain, Negative for edema, orthopnea, palpitations, paroxysmal nocturnal dyspnea. Exam: 21:19 Constitutional: This is a well developed, well nourished patient who is awake, alert, tw4 and in no acute distress. Head/Face: Normocephalic, atraumatic. Chest/axilla: Normal chest wall appearance and motion. Nontender with no deformity. No lesions are appreciated. Cardiovascular: Regular rate and rhythm with a normal S1 and S2. No gallops, murmurs, or rubs. Normal PMI, no JVD. No pulse deficits. Respiratory: Lungs have equal breath sounds bilaterally, clear to auscultation and percussion. No rales, rhonchi or wheezes noted. No increased work of breathing, no retractions or nasal flaring. Abdomen/GI: Soft, non-tender, with normal bowel sounds. No distension or tympany. No guarding or rebound. No evidence of tenderness throughout. Back: No spinal tenderness. No costovertebral tenderness. Full range of motion. Skin: Warm, dry with normal turgor. Normal color with no rashes, no lesions, and no evidence of cellulitis. MS/ Extremity: Pulses equal, no cyanosis. Neurovascular intact. Full, normal range of motion. Neuro: Awake and alert, GCS 15, oriented to person, place, time, and situation. Cranial nerves II-XII grossly intact. Motor strength 5/5 in all extremities. Sensory grossly intact. Cerebellar exam normal. Normal gait. Vital Signs: 21:22 Weight 117.93 kg (R); Height 5 ft. 8 in. (172.72 cm) (R); Pain 5/10; jd3 21:30 BP 133 / 69; Pulse 75; Resp 19; Temp 98.3(O); Pulse Ox 98% ; lt1 22:26 BP 130 / 66; Pulse 76; Resp 20 S; Pulse Ox 95% on R/A; Pain 2/10; jd3 23:42 BP 124 / 72; Pulse 74; Resp 18 S; Pulse Ox 96% on R/A; jd3 06/27 00:47 BP 130 / 75; Pulse 62; Resp 17 S; Pulse Ox 97% on R/A; jd3 06/26 21:22 Body Mass Index 39.53 (117.93 kg, 172.72 cm) jd3 MDM: 06/26 21:15 Patient medically screened. tw4 21:19 Differential diagnosis: acute pericarditis, chest wall pain, costochondritis, tw4 esophagitis, gastritis, gastroesophageal reflux disease (GERD), pancreatitis, peptic ulcer disease, pulmonary embolus, stable angina, unstable angina. HEART Score: History: Slightly Suspicious (0), ECG: Normal (0), Age: < or = 45 years (0), Risk Factors: 1 or 2 risk factors (1), Troponin: < or = 1 x Normal Limit (0), Total Score = 2. Data reviewed: vital signs, nurses notes. Data interpreted: Pulse oximetry: Interpretation: normal. Counseling: I had a detailed discussion with the patient and/or guardian regarding: the historical points, exam findings, and any diagnostic results supporting the discharge/admit diagnosis. 06/27 06:14 The patient was given aspirin in the Emergency Department. Refusal of service: The tw4 patient/guardian displays adequate decision making capability and despite a detailed discussion of alternatives, benefits, risks, and consequences refuses: Admission to the hospital for further work-up and treatment, all lab tests. 06/26 21:31 Order name: Basic Metabolic Panel; Complete Time: 00:12 06/27 00:12 Interpretation: Normal except: CL 109; GLUC 115; GFR 60. 06/26 21:31 Order name: CBC with Diff; Complete Time: 00:12 06/27 00:12 Interpretation: Normal except: WBC 11.3; RBC 4.91; PLT 151. 06/26 21:31 Order name: LFT's; Complete Time: 00:12 06/27 00:13 Interpretation: Normal except: ALB 3.3; GLOB 3.9; A/G 0.8. 06/26 21:31 Order name: Magnesium; Complete Time: 00:12 06/27 00:13 Interpretation: Within normal limits: MG 2.1. 06/26 21:31 Order name: NT PRO-BNP; Complete Time: 00:12 06/27 00:13 Interpretation: Within normal limits: NT PRO-BNP 57. 06/26 21:31 Order name: PT-INR; Complete Time: 00:12 06/27 00:13 Interpretation: Within normal limits: PT 10.8. 06/26:31 Order name: Troponin (emerg Dept Use Only); Complete Time: 00:12 06/26 21:31 Order name: XRAY Chest (1 view); Complete Time: 00:12 06/26 21:31 Order name: EKG; Complete Time: 21:32 06/26 21:31 Order name: Cardiac monitoring; Complete Time: :50 06/26 21:31 Order name: EKG - Nurse/Tech; Complete Time: 21:50 06/26 21:31 Order name: IV Saline Lock; Complete Time: 21:50 06/26 22:40 Order name: Lactate; Complete Time: 00:12 06/26 21:31 Order name: Labs collected and sent; Complete Time: :51 06/26 21:31 Order name: O2 Per Protocol; Complete Time: :06/26:31 Order name: O2 Sat Monitoring; Complete Time: :06/26 22:40 Order name: Urine Dipstick-Ancillary (obtain specimen); Complete Time: 00:48 EC:14 Rate is 74 beats/min. Rhythm is regular. QRS [place] is Normal. MT interval is normal. QRS tw4 interval is normal. QT interval is normal. No Q waves. T waves are Normal. No ST changes noted. Clinical impression: Normal ECG. Interpreted by me. Reviewed by me. Administered Medications: No medications were administered Disposition: 06:15 Chart complete. Disposition: 06/28/19 01:06 Patient has left against medical advice. - Patients states they are going to Home. - Condition is Stable. Signatures: Dispatcher [employer] Jakub Haywood RN RN jd3 Wadley, Terrence, MD MD Corrections: (The following items were deleted from the chart) 00:13 00:13 PT 10.8. tw4
[2019-06-28 01:27] VITALS: TEMP 98.3
[2019-06-28 01:31] VITALS: BP 130/75; O2SAT 97
--- NOTE | 2019-06-28 09:26 | EKG ---
Test Date: 2019-06-27 Test Time: 21:21:38 Horticulturalist: ELIT MEASUREMENT RESULTS: Intervals: Rate: 74 MD: 178 QRSD: 96 QT: 388 QTc: 430 [place]: P: 56 MD: 178 QRS: 54 T: 32 INTERPRETIVE STATEMENTS: Normal sinus rhythm Normal ECG Compared to ECG 08/21/2018 11:42:22 No significant changes Electronically Signed On 06-28-19 09:25:59 CDT by Bret Zee
== END 2019-06-28 01:06 | disposition left against medical advice (07) ==
LOC: ER 21:04
DX: R07.9 Chest pain, unspecified (principal); I10 Essential (primary) hypertension; Z53.29 Procedure and treatment not carried out because of patient's decision for other reasons
CPT/HCPCS: 36415; 71045; 80048; 80076; 83605; 83735; 83880; 84484; 85025; 85610; 93005; 99285

== ENCOUNTER 2020-02-01 12:51 | Emergency (ER) | payer BC ==
--- OUTSIDE RECORDS SUMMARY | 2020-02-01 12:54 | XMS REPORT | Continuity of Care Document ---
:1975 Author Organization [facility] Address [address] [place] [address] Care Team Providers Name Role Phone Doctor Unassigned, Name Attending Clinician Unavailable Kavita Armstrong Attending Clinician Problems This patient has no known problems. Allergies, Adverse Reactions, Alerts This patient has no known allergies or adverse reactions. Medications This patient has no known medications. Procedures This patient has no known procedures. Encounters Start End Encounter Admission Attending Care Care Encounter Source Date/Time Date/Time Type Type Clinicians Facility Department ID 2018-11-29 2018-11-29 Orders Doctor SOPHIE [id number] 00:00:00 00:00:00 Only UnassignedDAVIN [id number] [place] [facility] [id number] 2018-11-25 2018-11-25 Telephone DAKOTA Armstrong [id number] 00:00:00 00:00:00 Shayla Enriquez [id number] [place] [id number] [facility] [phone] nal 085 Building Results This patient has no known results.
[2020-02-01] MEDS ORDERED: DIAZEPAM 5 MG TABLET ONE (13:57)
--- NOTE | 2020-02-01 14:05 | RAD REPORT ---
EXAM DESCRIPTION: CT - Head Brain Wo Cont - 02/01/2020 1:50 pm CLINICAL HISTORY: DIZZINESS, syncope, fall COMPARISON: No comparisons TECHNIQUE: Axial 5 mm thick images of the head were obtained without IV contrast. All CT scans are performed using dose optimization technique as appropriate and may include automated exposure control or mA/KV adjustment according to patient size. FINDINGS: No intracranial hemorrhage, mass, edema or shift of mid-line structures. No acute infarcti on changes seen. No abnormal extra-axial fluid collections. Ventricles are normal. Mastoid air cells and visualized portions of the paranasal sinuses are clear. No acute bony findings. IMPRESSION: Negative non-contrast CT head examination.
[2020-02-01 14:15] LABS: Absolute Lymphocytes (CBC) 3.1 K/uL (0.7-4.9); Basophils % 1.2 % (0-1.3); Hematocrit 44.9 % (36.0-45.0); Lymphocytes % 28.3 % (15.3-44.8); MPV 11.4 fL (7.6-11.3); RBC Red Blood Cell Count 4.97 M/uL (3.86-4.86)
[2020-02-01 14:31] LABS: Protime INR 0.93
[2020-02-01 14:35] LABS: ALT/SGPT 40 U/L (12-78); AST/SGOT 32 U/L (15-37); Albumin 3.7 g/dL (3.4-5.0); Alkaline Phosphatase 82 U/L (45-117); BUN Blood Urea Nitrogen 12 mg/dL (7-18); Bicarbonate 28 mmol/L (21-32); Bilirubin Direct < 0.1 mg/dL (0-0.2); Bilirubin Total 0.3 mg/dL (0.2-1.0); Glucose Level 104 mg/dL (74-106); Magnesium 2.2 mg/dL (1.8-2.4); NT PRO-BNP 41 pg/mL (<125); Potassium 4.1 mmol/L (3.5-5.1); Protein, Total 8.1 g/dL (6.4-8.2); Sodium Level 140 mmol/L (136-145); Troponin (Emerg Dept Use Only) < 0.02 ng/mL (0.0-0.045)
--- NOTE | 2020-02-01 14:45 | ER ---
Nurse's Notes [facility] Name: Avis Adame Age: 44 yrs Sex: Female : 1975 Arrival Date: 02/01/2020 Time: 12:55 Bed 3 Private MD: Diagnosis: vertigo Presentation: 01/31 13:00 Chief complaint: Patient states: "I just felt faint earlier and I've got a lot going on ss right now. It could just have been a panic attack. They are always different.". Coronavirus screen: Client denies travel out of the [place] in the last 14 days. Ebola Screen: Patient denies exposure to infectious person. Patient denies travel to an Ebola-affected area in the 21 days before illness onset. Initial Sepsis Screen: Does the patient meet any 2 criteria? No. Patient's initial sepsis screen is negative. Does the patient have a suspected source of infection? No. Patient's initial sepsis screen is negative. Risk Assessment: Do you want to hurt yourself or someone else? Patient reports no desire to harm self or others. Onset of symptoms was February 01, 2020. 13:00 Method Of Arrival: Ambulatory ss 13:00 Acuity: TOO 3 ss Historical: - Allergies: 13:02 NKDA; ss - PMHx: 13:02 Hypertension; Sleep Apnea; ss 13:02 Anxiety; ss - PSHx: 13:02 Hysterectomy; ; Appendectomy; ss - Immunization history:: Adult Immunizations up to date. - Social history:: Smoking status: Patient reports the use of cigarette tobacco products, smokes one-half pack cigarettes per day. Screenin:40 Abuse screen: Denies threats or abuse. Nutritional screening: No deficits noted. em Tuberculosis screening: No symptoms or risk factors identified. Fall Risk None identified. Assessment: 13:40 General: Appears in no apparent distress. comfortable, Behavior is cooperative, em anxious. Pain: Denies pain. Neuro: Level of Consciousness is awake, alert, obeys commands, Oriented to person, place, time, situation, Appropriate for age. Cardiovascular: Reports chest pain, nausea, shortness of breath, Rhythm is regular. Respiratory: Airway is patent Respiratory effort is even, unlabored, Respiratory pattern is regular, symmetrical. GI: Patient currently denies nausea, vomiting. Derm: Skin is intact, is healthy with good turgor, Skin is pink, warm \\T\\ dry. Musculoskeletal: Capillary refill < 3 seconds, Range of motion: intact in all extremities. 13:50 Reassessment: pt refused EKG, states that "never shows anything". em 14:59 Reassessment: Patient appears in no apparent distress at this time. Patient and/or em family updated on plan of care and expected duration. Pain level reassessed. Patient is alert, oriented x 3, equal unlabored respirations, skin warm/dry/pink. Vital Signs: 13:00 BP 137 / 88; Pulse 68; Resp 16; Temp 98.7(TE); Pulse Ox 99% on R/A; Weight 131.54 kg; ss Height 5 ft. 7 in. (170.18 cm); Pain 0/10; 13:00 Body Mass Index 45.42 (131.54 kg, 170.18 cm) ED Course: 12:55 Patient arrived in ED. mr 13:02 Triage completed. ss 13:02 Arm band placed on right wrist. ss 13:23 Chau Green, RN is Primary Nurse. em 13:26 Amauri Richey PA is PHCP. [facility] 13:26 Russell Vidales MD is Attending Physician. [facility] 13:40 Patient has correct armband on for positive identification. Bed in low position. Call em light in reach. 13:49 CT Head Brain wo Cont In Process Unspecified. EDMS 14:05 Initial lab(s) drawn, by me, sent to lab. em 14:59 No provider procedures requiring assistance completed. Patient did not have IV access em during this emergency room visit. Administered Medications: 13:45 Drug: Valium 5 mg Route: PO; em 15:00 Follow up: Response: No adverse reaction; Marked relief of symptoms; Anxiety decreased em Outcome: 14:45 Discharge ordered by . [facility] 14:59 Discharged to home ambulatory. em 14:59 Condition: improved 14:59 Discharge instructions given to patient, Instructed on discharge instructions, follow up and referral plans. medication usage, Demonstrated understanding of instructions, follow-up care, medications, Prescriptions given X 1. 15:01 Patient left the ED. em Signatures: Dispatcher [employer] EDRI Amauri Richey PA PA jmm Rivera, Mary mr Chau Green, RN RN em Tonja Pham, RN RN ss
--- NOTE | 2020-02-01 14:46 | EDPHYS ---
Physician Documentation [facility] Name: Avis Adame Age: 44 yrs Sex: Female : 1975 Arrival Date: 02/01/2020 Time: 12:55 Bed 3 Private MD: ED Physician Russell Vidales HPI: 01/31 13:37 This 44 yrs old Female presents to ER via Ambulatory with complaints of Light jmm headed. 13:37 The patient presents with lightheadedness, sense of spinning. Onset: The jmm symptoms/episode began/occurred acutely, just prior to arrival. Modifying factors: The symptoms are alleviated by nothing, the symptoms are aggravated by nothing. Associated signs and symptoms: Pertinent negatives: shortness of breath, chest pain. The patient has not experienced similar symptoms in the past. This is a 44 year old female with a history of htn, anxiety that presents to the ED with complaints of dizziness while sitting on her couch watching the news. Patient states she had the sensation of a room moving. Patient states symptoms have resolved since. Denies chest pain, shortness of breath.. Historical: - Allergies: 13:02 NKDA; ss - PMHx: 13:02 Hypertension; Sleep Apnea; ss 13:02 Anxiety; ss - PSHx: 13:02 Hysterectomy; ; Appendectomy; ss - Immunization history:: Adult Immunizations up to date. - Social history:: Smoking status: Patient reports the use of cigarette tobacco products, smokes one-half pack cigarettes per day. ROS: 13:37 Constitutional: Negative for fever, chills, and weight loss, Cardiovascular: Negative jmm for chest pain, palpitations, and edema, Respiratory: Negative for shortness of breath, cough, wheezing, and pleuritic chest pain. 13:37 Neuro: Positive for dizziness. 13:37 All other systems are negative. Exam: 13:37 Constitutional: This is a well developed, well nourished patient who is awake, alert, jmm and in no acute distress. Head/Face: atraumatic. ENT: Moist Mucus Membranes Neck: Trachea midline, Supple Chest/axilla: Normal chest wall appearance and motion. Cardiovascular: Regular rate and rhythm. No edema appreciated Respiratory: Normal respirations, no respiratory distress appreciated Abdomen/GI: Non distended, soft Back: Normal ROM 13:37 Skin: General appearance color normal MS/ Extremity: Moves all extremities, no obvious deformities appreciated, no edema noted to the lower extremities Neuro: Awake and alert, normal gait Psych: Behavior is normal, Mood is normal, Patient is cooperative and pleasant 13:37 Eyes: Extraocular movements: intact throughout, Nystagmus: nystagmus with fast component noted, bilaterally. Vital Signs: 13:00 BP 137 / 88; Pulse 68; Resp 16; Temp 98.7(TE); Pulse Ox 99% on R/A; Weight 131.54 kg; ss Height 5 ft. 7 in. (170.18 cm); Pain 0/10; 13:00 Body Mass Index 45.42 (131.54 kg, 170.18 cm) ss MDM: 13:28 Patient medically screened. [facility] 14:43 Data reviewed: vital signs, nurses notes. Counseling: I had a detailed discussion with eliezer the patient and/or guardian regarding: the historical points, exam findings, and any diagnostic results supporting the discharge/admit diagnosis, lab results, radiology results, the need for outpatient follow up, to return to the emergency department if symptoms worsen or persist or if there are any questions or concerns that arise at home. ED course: CT negative. Normal cerebellar exam, normal gait. I do not suspect central cause of vertigo. Patient refused EKG, patient was advised of the reasoning behind the study and still declined. Patient is advised to follow up with pcp and otherwise given strict return precautions. Patient understood and agrees with the plan of care. . 01/31 13:37 Order name: Basic Metabolic Panel [facility] 01/31 13:37 Order name: CBC with Diff; Complete Time: 14:30 [facility] 01/31 13:37 Order name: LFT's; Complete Time: 14:41 [facility] 01/31 13:37 Order name: Magnesium; Complete Time: 14:41 [facility] 01/31 13:37 Order name: NT PRO-BNP; Complete Time: 14:41 [facility] 01/31 13:37 Order name: PT-INR; Complete Time: 14:34 [facility] 01/31 13:37 Order name: Troponin (emerg Dept Use Only); Complete Time: 14:41 [facility] 01/31 13:37 Order name: EKG; Complete Time: 13:38 [facility] 01/31 13:37 Order name: Cardiac monitoring; Complete Time: 13:41 [facility] 01/31 13:37 Order name: EKG - Nurse/Tech; Complete Time: 13:41 [facility] 01/31 13:37 Order name: CT Head Brain wo Cont; Complete Time: 14:14 [facility] 01/31 13:38 Order name: Basic Metabolic Panel; Complete Time: 14:41 [facility] 01/31 13:39 Order name: Glucose, Ancillary Testing; Complete Time: 13:43 [facility] 01/31 13:37 Order name: Labs collected and sent; Complete Time: 14:51 [facility] 01/31 13:37 Order name: O2 Per Protocol; Complete Time: 13:40 [facility] 01/31 13:37 Order name: O2 Sat Monitoring; Complete Time: 13:41 [facility] Administered Medications: 13:45 Drug: Valium 5 mg Route: PO; em 15:00 Follow up: Response: No adverse reaction; Marked relief of symptoms; Anxiety decreased em Disposition: 18:56 Co-signature as Attending Physician, Russell Vidales MD I agree with the assessment and kdr plan of care. Disposition: 02/01/20 14:45 Discharged to Home. Impression: vertigo. - Condition is Stable. - Discharge Instructions: Benign Positional Vertigo, Vertigo, Vandana Maneuver Self-Care. - Prescriptions for Meclizine 25 mg Oral Tablet - take 1 tablet by ORAL route every 8 hours As needed; 30 tablet. - Medication Reconciliation Form, Thank You Letter, Antibiotic Education, Prescription Opioid Use form. - Follow up: Private Physician; When: 2 - 3 days; Reason: Recheck today's complaints, Continuance of care, Re-evaluation by your physician. Signatures: Dispatcher [employer] Russell Stone MD MD kdr Mickail, Joel, PA PA [facility] Chau Green RN RN em Tonja Pham RN RN ss Corrections: (The following items were deleted from the chart) 14:51 13:37 IV Saline Lock ordered. [facility] em 15:01 14:45 02/01/2020 14:45 Discharged to Home. Impression: vertigo. Condition is Stable. em Forms are Medication Reconciliation Form, Thank You Letter, Antibiotic Education, Prescription Opioid Use. Follow up: Private Physician; When: 2 - 3 days; Reason: Recheck today's complaints, Continuance of care, Re-evaluation by your physician. [email or web address]
[2020-02-01 15:38] VITALS: BP 137/88; TEMP 98.7; O2SAT 99
== END 2020-02-01 15:01 | disposition home or self-care (01) ==
LOC: ER 12:51
DX: R42 Dizziness and giddiness (principal); I10 Essential (primary) hypertension; F17.210 Nicotine dependence, cigarettes, uncomplicated
CPT/HCPCS: 36415; 70450; 80048; 80076; 82947; 83735; 83880; 84484; 85025; 85610; 93005; 99284

== ENCOUNTER 2020-08-13 16:23 | Observation (INO) | payer BC ==
--- OUTSIDE RECORDS SUMMARY | 2020-08-13 16:26 | XMS REPORT | Continuity of Care Document ---
:1975 Author Organization [facility] Address [address] [place] [address] Care Team Providers Name Role Phone Doctor [...] ID 2018-11-29 2018-11-29 Orders Doctor SOPHIE [id number] 00:00:00 00:00:00 Only UnassignedDAVIN [id number] [place] [facility] [id number] 2018-11-25 2018-11-25 Telephone DAKOTA Armstrong [id number] 00:00:00 00:00:00 Shayla Enriquez [id number] [place] [id number] Profess[facility] [phone] nal 085 Building Results This patient has no known results.
[2020-08-13 17:51] LABS: Absolute Lymphocytes (CBC) 3.7 K/uL (0.7-4.9); Basophils % 0.5 % (0-1.3); Hematocrit 45.3 % (36.0-45.0); Lymphocytes % 28.9 % (15.3-44.8); MPV 11.2 fL (7.6-11.3); RBC Red Blood Cell Count 5.02 M/uL (3.86-4.86)
[2020-08-13] MEDS ORDERED: ASPIRIN 81 MG CHEWABLE TABLET ONE (18:06)
[2020-08-13] MEDS ORDERED: NITROGLYCERIN 0.4 MG/TAB SL ONE (18:07)
[2020-08-13 18:16] LABS: Protime INR 0.95
[2020-08-13] MEDS ORDERED: LORazepam 2 MG/ML VIAL ONE (18:16)
--- NOTE | 2020-08-13 18:23 | RAD REPORT ---
EXAM DESCRIPTION: Jose Enrique Single View08/13/2020 5:59 pm CLINICAL HISTORY: Chest pain COMPARISON: 2019 FINDINGS: The lungs appear clear of acute infiltrate. The heart is normal size IMPRESSION: No acute abnormalities displayed
[2020-08-13 18:29] LABS: ALT/SGPT 33 U/L (12-78); AST/SGOT 24 U/L (15-37); Albumin 3.7 g/dL (3.4-5.0); Alkaline Phosphatase 86 U/L (45-117); BUN Blood Urea Nitrogen 12 mg/dL (7-18); Bicarbonate 29 mmol/L (21-32); Bilirubin Direct < 0.1 mg/dL (0-0.2); Bilirubin Total 0.2 mg/dL (0.2-1.0); Glucose Level 85 mg/dL (74-106); Magnesium 2.1 mg/dL (1.8-2.4); NT PRO-BNP 95 pg/mL (<125); Potassium 3.9 mmol/L (3.5-5.1); Protein, Total 7.9 g/dL (6.4-8.2); Sodium Level 140 mmol/L (136-145); Troponin (Emerg Dept Use Only) < 0.02 ng/mL (0.0-0.045)
--- NOTE | 2020-08-13 18:58 | ER ---
Nurse's Notes [facility] Name: Avis Adame Age: 45 yrs Sex: Female : 1975 Arrival Date: 08/13/2020 Time: 16:26 Bed 4 Private MD: Rita Pate K Diagnosis: Unstable angina Presentation: 08/13 16:57 Chief complaint: Patient states: chest pain for 2 weeks that comes and goes but today em at work had chest pain on exertion with nausea, sweating and shortness of breath, also reports palpitations, denies cough or fever. Coronavirus screen: Client denies travel out of the [place] in the last 14 days. Ebola Screen: Patient negative for fever greater than or equal to 101.5 degrees Fahrenheit, and additional compatible Ebola Virus Disease symptoms Patient denies exposure to infectious person. Patient denies travel to an Ebola-affected area in the 21 days before illness onset. No symptoms or risks identified at this time. Initial Sepsis Screen: Does the patient meet any 2 criteria? No. Patient's initial sepsis screen is negative. Does the patient have a suspected source of infection? No. Patient's initial sepsis screen is negative. Risk Assessment: Do you want to hurt yourself or someone else? Patient reports no desire to harm self or others. Onset of symptoms was August 13, 2020. 16:57 Method Of Arrival: Ambulatory em 16:57 Acuity: TOO 3 em Triage Assessment: 17:00 General: Appears in no apparent distress. comfortable, obese, Behavior is cooperative, bp appropriate for age, anxious. Pain: Complains of pain in chest. EENT: No deficits noted. Neuro: No deficits noted. Cardiovascular: Rhythm is sinus rhythm. Respiratory: No deficits noted. GI: No signs and/or symptoms were reported involving the gastrointestinal system. : No signs and/or symptoms were reported regarding the genitourinary system. Derm: No deficits noted. Musculoskeletal: No deficits noted. 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 - Social history:: Smoking status: Patient reports the use of cigarette tobacco products, smokes one pack cigarettes per day. Screenin:25 Abuse screen: Denies threats or abuse. Denies injuries from another. Nutritional bp screening: No deficits noted. Tuberculosis screening: No symptoms or risk factors identified. Fall Risk None identified. Assessment: 17:25 General: SEE TRIAGE NOTE. bp 19:23 General: Appears in no apparent distress. Behavior is calm, cooperative, appropriate ea for age. Pain: Denies pain. Neuro: Level of Consciousness is awake, alert, obeys commands, Oriented to person, place, time, situation. Cardiovascular: Patient's skin is warm and dry. Respiratory: Airway is patent Respiratory effort is even, unlabored, Respiratory pattern is regular, symmetrical. Derm: Skin is pink, warm \T\ dry. Vital Signs: 16:57 BP 153 / 87; Pulse 83; Resp 18; Temp 98.3(O); Pulse Ox 98% on R/A; Weight 133.81 kg; em Height 5 ft. 7 in. (170.18 cm); Pain 3/10; 17:36 BP 128 / 68; Pulse 76; Resp 12; Pulse Ox 95% on R/A; mh5 18:13 BP 132 / 76; Pulse 81; Resp 20; Pulse Ox 92% ; bp 19:21 BP 117 / 76; Pulse 78; Resp 18; Pulse Ox 95% on R/A; ea 16:57 Body Mass Index 46.20 (133.81 kg, 170.18 cm) em ED Course: 16:26 Patient arrived in ED. mr 16:27 Rita Pate MD is Private Physician. mr 17:00 Triage completed. em 17:00 Arm band placed on. em 17:02 Jakub Hayden, LUIS EDUARDO is Primary Nurse. jd3 17:03 Zion Craig PA is PHCP. jr8 17:03 Jose East MD is Attending Physician. jr8 17:25 Patient has correct armband on for positive identification. Bed in low position. Call bp light in reach. Side rails up X2. surveillance monitor on. Pulse ox on. NIBP on. 17:34 XRAY Chest (1 view) Sent. jd3 17:35 EKG done, by ED staff, reviewed by Zion PUGA. mh5 17:36 Patient has correct armband on for positive identification. Placed in gown. Bed in low mh5 position. Call light in reach. Side rails up X 1. Warm blanket given. surveillance monitor on. Pulse ox on. NIBP on. 17:50 Inserted saline lock: 20 gauge in right antecubital area, using aseptic technique. bp Blood collected. Patient maintains SpO2 saturation greater than 95% on room air. 17:59 XRAY Chest (1 view) In Process Unspecified. EDMS 18:10 Aubrey Medina, LUIS EDUARDO is Primary Nurse. bp 18:57 Oliverio Hui DO is Hospitalizing Provider. jr8 19:15 Primary Nurse role handed off by Aubrey Medina, LUIS EDUARDO mw2 19:21 No provider procedures requiring assistance completed. Patient admitted, IV remains in ea place. 19:23 Qing Salmeron RN is Primary Nurse. ea Administered Medications: 17:40 Drug: Aspirin Chewable Tablet 324 mg Route: PO; bp 18:12 Follow up: Response: No adverse reaction bp 17:40 Drug: Nitroglycerin 0.4 mg Route: Sublingual; bp 18:12 Follow up: Response: No adverse reaction bp 18:00 Drug: Ativan (LORazepam) 0.5 mg Route: IVP; Site: right antecubital; bp 18:13 Follow up: Response: No adverse reaction bp 19:20 Drug: Lovenox (enoxaparin) 1 mg/kg Route: Sub-Q; Site: right lower abdomen; ea 21:14 Follow up: Response: No adverse reaction rv 19:20 Drug: Nicoderm CQ 21 mg/24 hr 1 patches Route: Transdermal; Site: affected area; ea Outcome: 18:57 Decision to Hospitalize by Provider. jr8 19:21 Condition: stable ea 19:21 Instructed on the need for admit, Demonstrated understanding of instructions. 21:14 Admitted to Tele accompanied by tech, via wheelchair, room 421, Other SBAR, EKG Report rv called to GARDENIA HOFF 21:19 Patient left the ED. rv Signatures: Dispatcher [employer] EDWARDNM SchraderKaya brewer mr GreenChau, RN Zion Roman PA PA jr8 Valentine Nieves [facility] Qing Salmeron RN RN ea Davies, Jonathon, RN RN jd3 Aubrey Medina RN RN bp Johny Recinos mw2 Haroon Moreno, RN RN rv
--- NOTE | 2020-08-13 18:58 | EDPHYS ---
Physician Documentation [facility] Name: Avis Adame Age: 45 yrs Sex: Female : 1975 Arrival Date: 08/13/2020 Time: 16:26 Bed 4 Private MD: Rita Pate K ED Physician Jose East HPI: 08/13 18:52 This 45 yrs old Female presents to ER via Ambulatory with complaints of Chest jr8 Pain. 18:52 The patient or guardian reports chest pain that is located primarily in the anterior jr8 chest wall, left. Onset: gradually, 2 week(s) ago, and became worse today. The pain does not radiate. Associated signs and symptoms: Pertinent positives: diaphoresis, nausea. The chest pain is described as squeezing. Modifying factors: The symptoms are alleviated by nothing. the symptoms are aggravated by exertion. Severity of pain: At its worst the pain was moderate. The patient has not experienced similar symptoms in the past. The patient has not recently seen a physician. 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 - Social history:: Smoking status: Patient reports the use of cigarette tobacco products, smokes one pack cigarettes per day. ROS: 18:52 Eyes: Negative for injury, pain, redness, and discharge, ENT: Negative for injury, jr8 pain, and discharge, Neck: Negative for injury, pain, and swelling, Back: Negative for injury and pain, MS/Extremity: Negative for injury and deformity, Skin: Negative for injury, rash, and discoloration. 18:52 Neuro: Negative for headache, weakness, numbness, tingling, and seizure. 18:52 Cardiovascular: Positive for chest pain, Negative for edema, orthopnea, palpitations, paroxysmal nocturnal dyspnea. 18:52 Respiratory: Positive for dyspnea on exertion. 18:52 Abdomen/GI: Positive for nausea, Negative for abdominal pain, vomiting, diarrhea. Exam: 18:52 Eyes: Pupils equal round and reactive to light, extra-ocular motions intact. Lids and jr8 lashes normal. Conjunctiva and sclera are non-icteric and not injected. Cornea within normal limits. Periorbital areas with no swelling, redness, or edema. ENT: Nares patent. No nasal discharge, no septal abnormalities noted. Tympanic membranes are normal and external auditory canals are clear. Oropharynx with no redness, swelling, or masses, exudates, or evidence of obstruction, uvula midline. Mucous membranes moist. Neck: Trachea midline, no thyromegaly or masses palpated, and no cervical lymphadenopathy. Supple, full range of motion without nuchal rigidity, or vertebral point tenderness. No Meningismus. Respiratory: Lungs have equal breath sounds bilaterally, clear to auscultation and percussion. No rales, rhonchi or wheezes noted. No increased work of breathing, no retractions or nasal flaring. Abdomen/GI: Soft, non-tender, with normal bowel sounds. No distension or tympany. No guarding or rebound. No evidence of tenderness throughout. Back: No spinal tenderness. No costovertebral tenderness. Full range of motion. Skin: Warm, dry with normal turgor. Normal color with no rashes, no lesions, and no evidence of cellulitis. MS/ Extremity: Pulses equal, no cyanosis. Neurovascular intact. Full, normal range of motion. Neuro: Awake and alert, GCS 15, oriented to person, place, time, and situation. Cranial nerves II-XII grossly intact. Motor strength 5/5 in all extremities. Sensory grossly intact. 18:52 Cardiovascular: Rate: normal, Rhythm: regular, Pulses: Pulses are 2+ in right radial artery and left radial artery. Heart sounds: S1, normal, S2, normal, S3, increased, Edema: is not appreciated, JVD: is not appreciated. 18:52 ECG was reviewed by the Attending Physician. Vital Signs: 16:57 BP 153 / 87; Pulse 83; Resp 18; Temp 98.3(O); Pulse Ox 98% on R/A; Weight 133.81 kg; em Height 5 ft. 7 in. (170.18 cm); Pain 3/10; 17:36 BP 128 / 68; Pulse 76; Resp 12; Pulse Ox 95% on R/A; mh5 18:13 BP 132 / 76; Pulse 81; Resp 20; Pulse Ox 92% ; bp 19:21 BP 117 / 76; Pulse 78; Resp 18; Pulse Ox 95% on R/A; ea 16:57 Body Mass Index 46.20 (133.81 kg, 170.18 cm) em MDM: 17:04 Patient medically screened. jr8 18:56 The patient was given aspirin in the Emergency Department. Data reviewed: vital signs, [facility] nurses notes, lab test result(s), EKG, radiologic studies, plain films. Data interpreted: Pulse oximetry: on room air is 95 %. Interpretation: normal. Counseling: I had a detailed discussion with the patient and/or guardian regarding: the historical points, exam findings, and any diagnostic results supporting the discharge/admit diagnosis, lab results, radiology results, the need for further work-up and treatment in the hospital. 08/13 17:04 Order name: Basic Metabolic Panel; Complete Time: 18:35 [facility] 08/13 17:04 Order name: CBC with Diff; Complete Time: 18:04 [facility] 08/13 17:04 Order name: LFT's; Complete Time: 18:35 [facility] 08/13 17:04 Order name: Magnesium; Complete Time: 18:35 08/13 17:04 Order name: NT PRO-BNP; Complete Time: 18:35 [facility] 08/13 17:04 Order name: PT-INR; Complete Time: 18:57 [facility] 08/13 17:04 Order name: Troponin (emerg Dept Use Only); Complete Time: 18:35 [facility] 08/13 17:04 Order name: XRAY Chest (1 view); Complete Time: 18:35 [facility] 08/13 20:54 Order name: SARS-COV-2 RT PCR; Complete Time: 20:59 EDMN 08/13 17:04 Order name: EKG; Complete Time: 17:05 08/13 17:04 Order name: Cardiac monitoring; Complete Time: 17:34 08/13 17:04 Order name: EKG - Nurse/Tech; Complete Time: 17:23 08/13 17:04 Order name: IV Saline Lock; Complete Time: 18:12 08/13 17:04 Order name: Labs collected and sent; Complete Time: 18:12 [facility] 08/13 17:04 Order name: O2 Per Protocol; Complete Time: 17:30 08/13 17:04 Order name: O2 Sat Monitoring; Complete Time: 17:30 jr8 EC:52 Rate is 80 beats/min. Rhythm is regular, Normal Sinus Rhythm. QRS [place] is Normal. [place] jr8 interval is normal at 188 msec. QRS interval is normal at 106 msec. QT interval is normal at 388 msec. No Q waves. T waves are Inverted in lead V1. T waves are Flattened in lead aVL. No ST changes noted. Clinical impression: NSR w/ Non-specific ST/T Changes. Interpreted by me. Reviewed by me. Administered Medications: 17:40 Drug: Aspirin Chewable Tablet 324 mg Route: PO; bp 18:12 Follow up: Response: No adverse reaction bp 17:40 Drug: Nitroglycerin 0.4 mg Route: Sublingual; bp 18:12 Follow up: Response: No adverse reaction bp 18:00 Drug: Ativan (LORazepam) 0.5 mg Route: IVP; Site: right antecubital; bp 18:13 Follow up: Response: No adverse reaction bp 19:20 Drug: Lovenox (enoxaparin) 1 mg/kg Route: Sub-Q; Site: right lower abdomen; ea 21:14 Follow up: Response: No adverse reaction rv 19:20 Drug: Nicoderm CQ 21 mg/24 hr 1 patches Route: Transdermal; Site: affected area; ea Disposition: 08/13/20 18:57 Hospitalization ordered by Oliverio Hui for Observation. Preliminary diagnosis is Unstable angina. - Bed requested for Telemetry/MedSurg (observation). - Status is Observation. rv - Condition is Stable. - Problem is new. - Symptoms have improved. Addendum: 08/15/2020 06:38 Co-signature as Attending Physician, Jose East MD I agree with the assessment and t w4 plan of care. Signatures: Dispatcher [employer] Rosio Kilgore, RN Chau Sebastian, RN Zion Roman PA PA jr8 Qing Salmeron RN RN ea Peltier, Brian RN Jose Magdaleno MD MD tw4 Haroon Moreno RN RN rv Corrections: (The following items were deleted from the chart) 08/13 20:08 19:27 CORONAVIRUS+[email or web address].BRZ ordered. EDMS EDMS 20:55 18:57 Hospitalization Ordered by Oliverio Hui DO for Observation. Preliminary dw diagnosis is Unstable angina. Bed requested for Telemetry/MedSurg (observation). Status is Observation. Condition is Stable. Problem is new. Symptoms have improved. jr8 21:19 20:55 08/13/2020 18:57 Hospitalization Ordered by Oliverio Hui DO for Observation. rv Preliminary diagnosis is Unstable angina. Bed requested for Telemetry/MedSurg (observation). Status is Observation. Condition is Stable. Problem is new. Symptoms have improved. dw
[2020-08-13] MEDS ORDERED: NICOTINE 21 MG/PAT TD ONE ×2 (19:27→23:00)
[2020-08-13] MEDS ORDERED: ENOXAPARIN 100 MG/ML SYR SQ ONE (19:28)
--- NOTE | 2020-08-13 19:37 | P.HP ---
Certification for Inpatient Patient admitted to: Observation With expected LOS: <2 Midnights Patient will require the following post-hospital care: None Practitioner: I am a practitioner with admitting privileges, knowledge of patient current condition, hospital course, and medical plan of care. Services: Services provided to patient in accordance with Admission requirements found in Title 42 Section 412.3 of the Code of Federal Regulations Patient History Date of Service: 08/13/20 Primary Care Provider: Dr. Pate Reason for admission: Chest pain History of Present Illness: 45-year-old female with history significant for tobacco abuse, obesity presents emergency department for ongoing chest pain. Patient reports chest pain began approximately 2 weeks ago and is intermittent in nature, pain is exacerbated with exertion, described as pressure-like radiating to left shoulder and jaw with associated shortness of breath and diaphoresis today. Patient I ordered in the emergency department, labs significant for white blood cell count 0.6 hemoglobin 15.2 hematocrit 45.2 initial troponin negative, chest x-ray unremarkable EKG without acute changes. ED provider wishes to admit for chest pain rule out. 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, lives with her and 2 children - Family History Family History: Reviewed- Non-Contributory - Social History Smoking Status: Heavy Tobacco smoker (>10 cigarettes/day) Counseled patient to stop smoking for: less than 10 minutes Smoking therapy provided: Yes Alcohol use: No CD- Drugs: No Caffeine use: Yes Place of Residence: Home Review of Systems 10-point ROS is otherwise unremarkable Respiratory: Shortness of Breath, SOB with Excertion Cardiovascular: Chest Pain Physical Examination - Physical Exam General: Alert, In no apparent distress, Oriented x3, Obese HEENT: Atraumatic, PERRLA, Mucous membr. moist/pink Neck: Supple, 2+ carotid pulse no bruit, No LAD Respiratory: Clear to auscultation bilaterally, Normal air movement Cardiovascular: Regular rate/rhythm, Normal S1 S2 Gastrointestinal: Normal bowel sounds, No tenderness Musculoskeletal: No tenderness Integumentary: No rashes Neurological: Normal speech, Normal strength at 5/5 x4 extr, Normal tone, Normal affect - Studies Laboratory Data (last 24 hrs) 08/13/20 17:40: PT 10.9, INR 0.95 08/13/20 17:40: WBC 12.60 H, Hgb 15.2 H, Hct 45.3 H, Plt Count 164 08/13/20 17:40: Sodium 140, Potassium 3.9, BUN 12, Creatinine 0.94, Glucose 85, Magnesium 2.1, Total Bilirubin 0.2, AST 24, ALT 33, Alkaline Phosphatase 86 Assessment and Plan - Plan Assessment Chest pain rule out ACS Tobacco abuse Obesity Plan Chest pain rule out ACS: Monitor on telemetry, trend troponins, thyroid panel/lipid panel with morning labs. Cardiology consult in place. Initiate therapy with beta-odilon, statin, aspirin. DVT prophylaxis Lovenox 40 mg subcutaneous once daily. Tobacco abuse: Discussed need for tobacco cessation with patient, will continue with Nicoderm patch at this time. Obesity: Discussed lifestyle changes. Discharge Plan: Home Plan to discharge in: 24 Hours - Advance Directives Does patient have a Living Will: No Does patient have a Durable POA for Healthcare: No - Code Status/Comfort Care Code Status Assessed: Yes (Full code) Critical Care: No Time Spent Managing Pts Care (In Minutes): 55
[2020-08-13] MEDS ORDERED: ATORVASTATIN 40 MG TAB PO SCH (21:59)
[2020-08-13] MEDS ORDERED: ONDANSETRON 4 MG/2 ML VIAL IV PRN (21:59)
[2020-08-13] MEDS ORDERED: ACETAMINOPHEN 500 MG TAB PO PRN (21:59)
[2020-08-13 22:15] VITALS: BMI 47.5
[2020-08-13] MEDS ORDERED: LORazepam 2 MG/ML VIAL IV SCH (23:00)
[2020-08-13] MEDS ORDERED: LORazepam 2 MG/ML VIAL IV PRN (23:03)
[2020-08-14 00:27] LABS: Urine Appearance CLEAR (Clear); Urine Blood NEGATIVE (Negative); Urine Color YELLOW (Yellow); Urine Glucose NEGATIVE (Negative); Urine Protein NEGATIVE (Negative); Urine Specific Gravity >=1.030 (1.005-1.030); Urine pH 5.5 (5.0-7.0)
[2020-08-14 00:44] LABS: Urine Microscopic Reflex NO UMIC
[2020-08-14 01:22] LABS: Urine Bilirubin NEGATIVE (Negataive)
[2020-08-14 04:22] LABS: Absolute Lymphocytes (CBC) 3.7 K/uL (0.7-4.9); Basophils % 1.3 % (0-1.3); Hematocrit 41.7 % (36.0-45.0); Lymphocytes % 40.4 % (15.3-44.8); MPV 10.8 fL (7.6-11.3); RBC Red Blood Cell Count 4.58 M/uL (3.86-4.86)
[2020-08-14 04:38] LABS: ALT/SGPT 29 U/L (12-78); AST/SGOT 22 U/L (15-37); Albumin 3.1 g/dL (3.4-5.0); Alkaline Phosphatase 75 U/L (45-117); BUN Blood Urea Nitrogen 14 mg/dL (7-18); Bicarbonate 28 mmol/L (21-32); Bilirubin Total 0.2 mg/dL (0.2-1.0); Glucose Level 113 mg/dL (74-106); HDL Cholesterol 20 mg/dL (40-60); Magnesium 2.1 mg/dL (1.8-2.4); Potassium 3.5 mmol/L (3.5-5.1); Protein, Total 6.8 g/dL (6.4-8.2); Sodium Level 143 mmol/L (136-145); Troponin I < 0.02 ng/mL (0.0-0.045)
[2020-08-14 05:00] LABS: LDL, Direct 74 mg/dL (100-129)
[2020-08-14] MEDS ORDERED: KCL 20 MEQ/100 mL IVPB 20 MEQ/100 ML BAG IV SCH (05:00)
[2020-08-14] MEDS ORDERED: NA CHLORIDE 0.9% 100 ML ONE (05:39)
[2020-08-14] MEDS ORDERED: LORazepam 2 MG/ML VIAL IV SCH (06:00)
[2020-08-14] MEDS ORDERED: METOPROLOL TAR 25 MG TAB PO SCH (06:00)
--- NOTE | 2020-08-14 07:37 | EKG ---
Test Date: 2020-08-13 Test Time: 17:26:43 Oncology Physician Assistant: SHAHZAD MEASUREMENT RESULTS: Intervals: Rate: 80 NC: 188 QRSD: 106 QT: 388 QTc: 447 [place]: P: 57 NC: 188 QRS: 75 T: 49 INTERPRETIVE STATEMENTS: Normal sinus rhythm Normal ECG Compared to ECG 06/27/2019 21:21:38 No significant changes Electronically Signed On 08-14-20 07:35:07 CDT by Daniel Steele
[2020-08-14 08:44] VITALS: BP 141/71; TEMP 97.3
[2020-08-14] MEDS ORDERED: ASPIRIN EC 81 MG TAB PO SCH (09:00)
[2020-08-14] MEDS ORDERED: ENOXAPARIN 40 MG/0.4 ML SQ SCH (09:00)
[2020-08-14 09:03] VITALS: O2SAT 91
--- NOTE | 2020-08-14 10:22 | P.DS ---
Admission Date: 08/13/20 Discharge Date: 08/14/20 Primary Care Provider: Dr. Pate Disposition: ROUTINE DISCHARGE Discharge Condition: GOOD Reason for Admission: Chest pain Consultations: Cardiology-Dr. Steele Procedures: COVID: Negative Medical Problem List: Chest pain rule out ACS HTN, new diagnosis Hypertriglyceridemia Tobacco abuse Obesity, BMI 47.5 Brief History of Present Illness: 45-year-old female with history significant for tobacco abuse, obesity presents emergency department for ongoing chest pain. Patient reports chest pain began approximately 2 weeks ago and is intermittent in nature, pain is exacerbated with exertion, described as pressure-like radiating to left shoulder and jaw with associated shortness of breath and diaphoresis today. Patient I ordered in the emergency department, labs significant for white blood cell count 0.6 hemoglobin 15.2 hematocrit 45.2 initial troponin negative, chest x-ray unremarkable EKG without acute changes. Patient was admitted for further evaluation and treatment. Hospital Course: Patient presented with chest pain. She reported chest pain with shortness of breath. Cardiac enzymes have been unremarkable. Patient seen and evaluated by cardiology. Cardiology recommends heart catheterization. Patient prefers to do this as an outpatient. Cardiology plans for heart catheterization tomorrow. Blood pressures have been elevated. Patient was started on medication for blood pressure. Patient also found to have elevated triglyceride level. At discharge heart cath team will meet with the patient in preparation for heart catheterization tomorrow as an outpatient. At discharge patient will continue with aspirin 81 mg daily, metoprolol 12.5 mg 1 pill twice daily, and fish oil 1000 mg 1 pill twice daily. Recommend to monitor blood pressures daily. Recommend to maintain blood pressure less than 130/80. If blood pressures remain elevated greater than 140/90 she is to contact her PCP or cardiology for further recommendation. Await findings from heart catheterization tomorrow for further recommendation. Patient with tobacco abuse. Tobacco cessation education provided. Patient will be provided nicotine patch to continue at home. Lifestyle modification education provided as well. Vital Signs/Physical Exam: Temp Pulse Resp BP Pulse Ox 97.3 F 65 16 141/71 H 91 08/14/20 08:00 08/14/20 08:00 08/14/20 08:00 08/14/20 08:00 08/14/20 08:00 General: Alert, In no apparent distress, Oriented x3, Cooperative HEENT: Atraumatic Neck: Supple Respiratory: Clear to auscultation bilaterally, Normal air movement Cardiovascular: Normal pulses, Regular rate/rhythm Gastrointestinal: Normal bowel sounds, No tenderness, No masses, No rebound, No guarding Musculoskeletal: No erythema, No tenderness, No warmth Neurological: Normal speech, Normal strength at 5/5 x4 extr, Normal tone, Normal affect Laboratory Data at Discharge: WBC 9.20 K/uL (4.3-10.9) D 08/14/20 03:04 Hgb 13.8 g/dL (12.0-15.0) 08/14/20 03:04 Hct 41.7 % (36.0-45.0) 08/14/20 03:04 Plt Count 134 K/uL (152-406) L 08/14/20 03:04 PT 10.9 SECONDS (9.5-12.5) 08/13/20 17:40 INR 0.95 08/13/20 17:40 Sodium 143 mmol/L (136-145) 08/14/20 03:04 Potassium 3.5 mmol/L (3.5-5.1) 08/14/20 03:04 BUN 14 mg/dL (7-18) 08/14/20 03:04 Creatinine 0.97 mg/dL (0.55-1.3) 08/14/20 03:04 Glucose 113 mg/dL (74-106) H 08/14/20 03:04 Magnesium 2.1 mg/dL (1.8-2.4) 08/14/20 03:04 Total Bilirubin 0.2 mg/dL (0.2-1.0) 08/14/20 03:04 AST 22 U/L (15-37) 08/14/20 03:04 ALT 29 U/L (12-78) 08/14/20 03:04 Alkaline Phosphatase 75 U/L (45-117) 08/14/20 03:04 Troponin I < 0.02 ng/mL (0.0-0.045) 08/14/20 03:04 Triglycerides 505 mg/dL (<150) H 08/14/20 03:04 Cholesterol 135 mg/dL (<200) 08/14/20 03:04 LDL Cholesterol Direct 74 mg/dL (100-129) L 08/14/20 03:04 HDL Cholesterol 20 mg/dL (40-60) L 08/14/20 03:04 Cholesterol/HDL Ratio 6.75 08/14/20 03:04 Home Medications: Vits W-Ca,Fe,FA(<1Mg) [] 1 each PO DAILY 07/31/11 Aspirin [Aspirin EC 81 MG] 81 mg PO DAILY #90 tablet. 08/14/20 Docosahexanoic AC/Epa [Fish Oil 1,000 MG CAP] 1 cap PO BID #60 cap 08/14/20 Metoprolol Tartrate [Lopressor*] 12.5 mg PO BID 6AM 6PM #30 tab 08/14/20 Nicotine [Nicoderm*] 21 mg TD DAILY #30 patch.td24 08/14/20 New Medications: Aspirin [Aspirin EC 81 MG] 81 mg PO DAILY #90 tablet. Docosahexanoic AC/Epa [Fish Oil 1,000 MG CAP] 1 cap PO BID #60 cap Metoprolol Tartrate [Lopressor*] 12.5 mg PO BID 6AM 6PM #30 tab Nicotine [Nicoderm*] 21 mg TD DAILY #30 patch.td24 Physician Discharge Instructions: Patient presented with chest pain. She reported chest pain with shortness of breath. Cardiac enzymes have been unremarkable. Patient seen and evaluated by cardiology. Cardiology recommends heart catheterization. Patient prefers to do this as an outpatient. Cardiology plans for heart catheterization tomorrow. Blood pressures have been elevated. Patient was started on medication for blood pressure. Patient also found to have elevated triglyceride level. At discharge heart cath team will meet with the patient in preparation for heart catheterization tomorrow as an outpatient. At discharge patient will continue with aspirin 81 mg daily, metoprolol 12.5 mg 1 pill twice daily, and fish oil 1000 mg 1 pill twice daily. Recommend to monitor blood pressures daily. Recommend to maintain blood pressure less than 130/80. If blood pressures remain elevated greater than 140/90 she is to contact her PCP or cardiology for further recommendation. Await findings from heart catheterization tomorrow for further recommendation. Patient with tobacco abuse. Tobacco cessation education provided. Patient will be provided nicotine patch to continue at home. Lifestyle modification education provided as well. Diet: AHA Activity: Ad steve Followup: Rita Pate MD [Primary Care Provider] - Time spent managing pt's care (in minutes): 55
[2020-08-15] MEDS ORDERED: NICOTINE 21 MG/PAT TD SCH (09:00)
--- NOTE | 2020-08-15 12:13 | CON ---
Date of Consultation: 08/14/2020 Reason For Consultation: Unstable angina. History Of Present Illness: Ms. Adame is a 45-year-old woman. Has a history of obesity, hypertens ion, sleep apnea, anxiety, family history of heart disease, dyslipidemia, tobacco use. Came in with substernal chest pressure, radiating to both arms with dyspnea on exertion. Her symptoms are very ex ertional. She gets diaphoretic. Her symptoms started in the chest and radiated to both arms bilater ally with shortness of breath. Denied any nausea, vomiting. Denied any PND, orthopnea, pedal edema, palpitations, or syncope. She has already ruled out for an MO. Her EKG was normal. Past Medical History: As stated above. Allergies: SHE IS ALLERGIC TO PIPERACILLIN AND TAZOBACTAM. Review of Systems: Negative. Social History: Positive for tobacco. Family History: Positive for heart disease. Medications: At home include fish oil, beta-odilon, and aspirin. Physical Examination: Vital Signs: She weighed 300 pounds. Her height was 5 feet 7 inches. HEENT: Negative. Neck: Supple with no bruit. Chest: Clear to auscultation and percussion. Cardiac: Revealed a regular rhythm and rate. No murmurs, gallops, or rubs. Abdomen: Obese, but benign. Extremities: Revealed no clubbing, cyanosis, or edema. Diagnostic Data: Includes a normal x-ray, normal EKG, normal blood work. Her troponin was negative. Potassium of 3.5. Her GFR was 62. Impression And Plan: I think Ms. Adame is at very high risk of having coronary artery disease. He r symptoms are very classic for unstable angina. Every time she exerts herself or walks 10 to 20 lena ds, she has dyspnea. She has chest pressure that radiates to both arms. She gets diaphoretic. No n ausea or vomiting. I felt very uncomfortable considering her risk factors including her obesity, hyp ertension, dyslipidemia, family history, history of tobacco use. I felt uncomfortable having her do a stress test. I recommended a left heart catheterization to define her coronary anatomy. The patie nt would prefer to have it done as an outpatient on the day or after today. I will discuss this with her admitting physician, with the patient, and with the staff and we will plan a heart catheterizati on on 08/15/2020. Further plan will be decided after the catheterization is done. MARKUS/DUC Voice ID: [id number] Report ID: [id number]
== END 2020-08-14 11:15 | disposition home or self-care (01) ==
LOC: ER 16:23 → 4TH 21:21
PROVIDERS: ADMIT Family Medicine; ATTEND Family Medicine
DX: R07.9 Chest pain, unspecified (principal); I10 Essential (primary) hypertension; E66.9 Obesity, unspecified; Z68.42 Body mass index [BMI] 45.0-49.9, adult; E78.1 Pure hyperglyceridemia; G47.30 Sleep apnea, unspecified; Z20.822 Contact with and (suspected) exposure to COVID-19; F41.9 Anxiety disorder, unspecified; E78.5 Hyperlipidemia, unspecified; F17.210 Nicotine dependence, cigarettes, uncomplicated
CPT/HCPCS: 93005; 85025 ×2; 80048; 36415; 83721; 83735 ×2; 85610; 80061; 80076; 84443; 81003; 84484 ×3; 84439; 80053; 83880; 71045; 94660; 96372; 96374; 99285; U0003; J3480; J1650 ×2; G0378

== ENCOUNTER 2020-08-15 08:28 | Day surgery (SDC) | payer BC ==
[2020-08-15] MEDS ORDERED: NA CHLORIDE 0.9% 500 ML ONE (08:51)
[2020-08-15] MEDS ORDERED: MIDAZOLAM HCL 2 MG/2 ML INJ ONE (09:29)
[2020-08-15] MEDS ORDERED: ATROPINE SULF 1 MG/10 ML SYR IV ONE (09:56)
[2020-08-15] MEDS ORDERED: HEPA 1000U/500MLS 1,000 UNIT/500 ML BAG IV ONE (09:56)
[2020-08-15] MEDS ORDERED: LIDOCAINE 1% 20 ML MDV ONE (09:56)
[2020-08-15] MEDS ORDERED: FENTANYL CITR 100 MCG/2 ML ONE (10:19)
[2020-08-15] MEDS ORDERED: MIDAZOLAM HCL 5 ML ONE (10:19)
[2020-08-15] MEDS ORDERED: NA CHLORIDE 0.9% 0 ML IV ONE (10:20)
[2020-08-15 11:15] VITALS: TEMP 97.6
[2020-08-15] MEDS ORDERED: ACETAMINOPHEN 325 MG TABLET ONE (11:22)
[2020-08-15 11:41] VITALS: O2SAT 96
[2020-08-15 11:56] VITALS: BP 137/85
--- NOTE | 2020-08-15 17:27 | OP ---
Date of Procedure: 08/15/2020 Surgeon: Daniel Steele MD Resource Management Specialist: Homero Rivera. Procedures: Left heart catheterization, selective coronary arteriogram. Indication: Unstable angina. History Of Present Illness: Ms. Adame is a 45-year-old woman with history of hypertension, dyslipi demia, tobacco abuse, family history, came into the emergency room and was admitted with substernal c hest pressure, radiating to both arms with shortness of breath and diaphoresis, ruled out for an AR. Her EKG was normal, but her symptoms were so typical. We planned a heart catheterization today as a n outpatient. Procedure In Detail: She came into the animal laboratory helper on 08/15/2020, underwent left heart catheterization, selective coronary arteriogram, was prepped and draped in routine sterile fashion. Given Versed and fentanyl for sedation. A 6-Malaysian sheath was introduced in the right common femoral artery successf ully using 10 mL of Xylocaine and a Seldinger technique. Angiography there was normal. Angio-Seal w as used to close the case. 6-Malaysian catheters JL4 and JR4 were used to do the diagnostic catheteriza tion. She was found to have normal coronaries. There were no complications. Blood loss was 5 mL. Postoperative Diagnoses: Unstable angina, normal coronaries. Plan: Plan is for medical therapy. Anesthesia: Total conscious sedation 45 minutes. The patient will go home today in 2 hours. I will see her in the office in 2 weeks. MARKUS/DUC Voice ID: [id number] Report ID: [id number]
== END 2020-08-15 12:28 | disposition home or self-care (01) ==
LOC: CCL 08:28
DX: I20.0 Unstable angina (principal); I10 Essential (primary) hypertension; E78.5 Hyperlipidemia, unspecified; Z72.0 Tobacco use; Z88.0 Allergy status to penicillin
CPT/HCPCS: 93454; C1893; C1760; J2250 ×2; J3010; J7040; J1644; 93458; J0583

== ENCOUNTER 2020-08-15 19:57 | Emergency (ER) | payer SELFPAY ==
--- OUTSIDE RECORDS SUMMARY | 2020-08-15 20:00 | XMS REPORT | Continuity of Care Document ---
:1975 Author Organization [facility] t Address [address] [place] [address] Care Team Providers Name Role Phone Doctor [...] ID 2018-11-29 2018-11-29 Orders Doctor SOPHIE [id number] 00:00:00 00:00:00 Only Unassigned, DAVIN [id number] [place] [facility] [id number] 2018-11-25 2018-11-25 Telephone DAKOTA Armstrong [id number] 00:00:00 00:00:00 Shayla Enriquez [id number] [place] [id number] [place] [phone] [facility] [address] Building Results This patient has no known results.
--- NOTE | 2020-08-15 21:49 | ER ---
Nurse's Notes [facility] [place] Name: Avis Adame Age: 45 yrs Sex: Female : 1975 Arrival Date: 08/15/2020 Time: 20:08 Bed Waiting Private MD: Diagnosis: Presentation: 08/15 20:26 Chief complaint: Patient states: I had a heart cath this morning, I went home and went jb4 to sleep. When I woke up, I had severe pain shooting down my right leg from my incision site. I began feeling nauseous at the same time and it comes and goes. Coronavirus screen: Client denies travel out of the [place] in the last 14 days. At this time, the client does not indicate any symptoms associated with coronavirus-19. Ebola Screen: No symptoms or risks identified at this time. Initial Sepsis Screen: Does the patient meet any 2 criteria? No. Patient's initial sepsis screen is negative. Does the patient have a suspected source of infection? No. Patient's initial sepsis screen is negative. Risk Assessment: Do you want to hurt yourself or someone else? Patient reports no desire to harm self or others. Onset of symptoms was August 15, 2020. Transition of care: patient was not received from another setting of care. 20:26 Method Of Arrival: Ambulatory jb4 20:26 Acuity: TOO 3 jb4 DATA SOLUTIONS ARCHITECT: 20:31 LMP N/A - Hysterectomy jb4 Historical: - Allergies: 20:31 NKDA; jb4 - Home Meds: 20:31 Metoprolol Tartrate Oral [Active]; aspirin 81 mg Oral chew [Active]; jb4 - PMHx: 20:31 Anxiety; Hypertension; Sleep Apnea; jb4 - PSHx: 20:31 Appendectomy; Hysterectomy; ; heart cath; jb4 - Immunization history:: Adult Immunizations up to date. - Social history:: Smoking status: Patient reports the use of cigarette tobacco products, smokes one pack cigarettes per day. Patient uses alcohol, only on a social basis. Patient/guardian denies using street drugs. Vital Signs: 20:26 BP 141 / 91; Pulse 72; Resp 16; Temp 98.8(TE); Pulse Ox 98% on R/A; Weight 136.08 kg jb4 (R); Height 5 ft. 7 in. (170.18 cm) (R); Pain 910; 20:26 Body Mass Index 46.99 (136.08 kg, 170.18 cm) jb4 ED Course: 20:08 Patient arrived in ED. cf2 20:30 Triage completed. jb4 20:31 Arm band placed on right wrist. jb4 Administered Medications: No medications were administered Outcome: 21:48 Eloped from waiting room, before seeing physician Time discovered patient gone: July jb4 2020 at 20:00 21:48 Patient left the ED. jb4 Signatures: Ibrahima Blackwell, RN RN jb4 Pauline Gordon 2
[2020-08-15 23:27] VITALS: BP 141/91; TEMP 98.8; O2SAT 98
== END 2020-08-15 21:48 | disposition left against medical advice (07) ==
LOC: ER 19:57
DX: Z53.21 Procedure and treatment not carried out due to patient leaving prior to being seen by health care provider (principal)
CPT/HCPCS: 99281

== ENCOUNTER 2023-07-09 08:40 | Observation (INO) | payer BC ==
--- OUTSIDE RECORDS SUMMARY | 2023-07-09 08:43 | XMS REPORT | Continuity of Care Document ---
Author Name Unknown Address [address] [place] [address] [facility] thconnect Address [address] [place] [address] Care Team Providers Care Molding Manager Name Role Phone [email or web address] Attending Clinician ЮЛИЯ Mendez Attending Clinician ЮЛИЯ Mendez Attending Clinician Юлия Mendez MD Attending Clinician [phone] Doctor Unassigned, [place] Attending Clinician U navailable [email or web address] Admitting Clinician Albino bonilla Payers Payer Name Policy Type Policy Number Effective Date Expirati on Date Source [facility] [id number] 2017 00:00:00 Allergies, Adverse Reactions, Alerts Allergy Name Allergy Type Status Severity Reaction(s) Onset Date Inactive Date Treating Clinician Comments Source NO KNOWN ALLERGIE S Drug [facility] Social History Social Habit Start Date Stop Date Quantity Comments Source Tobacco use and exposure 2018-06-29 00:00:00 2018-06-29 00:00:00 Never used [facility] Alcohol intake 2018-06-29 00:00:00 2018-06-29 00:00:00 Current non-drinker of alcohol (finding) [facility] Sex Assigned At 1975 00:00:00 1975 00[birth year]00 [facility] Smoking Status Start Date Stop Date Source Never smoker [facility] Medications Ordered Medication Name Filled Medication Name Start Date Stop Date Current Medication? Ordering Clinician Indication Dosage Frequency Signature (SIG) Comments Components Source No known medications No Un shea [facility] No known medications No [facility] No known medications [facility] No known [facility] No known medications [facility] known [facility] No known medications No [facility] known [facility] Procedures Procedure Date / Time Performed Performing Clinician Source DME/SUPPLY JUSTIFICATION 2020-11-22 05:01:00 Doc tor Unassigned, [place] [facility] DME/SUPPLY JUSTIFICATION 2018-11-29 05:01:00 Doc tor Unassigned, [place] [facility] Encounters Start Date/Time End Date/Time Encounter Type Admission Type Attending [facility] Facility Care Department Encounter ID Source 2023-02-16 00:00:00 2023-02-16 00:00:00 Outpatient [email or web address] [facility] [id number] [facility] 2022-09-16 10:30:00 2022-09-16 10:30:00 Outpatient R ЮЛИЯ ARMSTRONG [facility] [id number] [facility] 2020-11-22 00:00:00 2020-11-22 00:00:00 Telephone Юлия Armstrong [facility] Zoe Ulrich [facility] .840.114 [id number] [facility] 2020-11-22 00:00:00 2020-11-22 00:00:00 Orders Only Doctor Unassigned, [place] [facility] [id number] [facility] 2018-11-29 00:00:00 2018-11-29 00:00:00 Orders Only Doctor Unassigned, [place] [facility] [id number] [id number] 2018-11-29 00:00:00 2018-11-29 00:00:00 Orders Only Doctor Unassigned, [place] [facility] [id number] [facility] 2018-11-25 00:00:00 2018-11-25 00:00:00 Telephone Юлия Armstrong [facility] [id number] 2018-11-25 00:00:00 2018-11-25 00:00:00 Telephone Юлия Armstrong [facility] [id number] [id number] [facility]
[2023-07-09] MEDS ORDERED: FAMOTIDINE 20 MG/2 ML VIAL IV ONE (09:30)
[2023-07-09] MEDS ORDERED: FENTANYL CITR 100 MCG/2 ML ONE ×3 (09:30→16:43)
[2023-07-09] MEDS ORDERED: ONDANSETRON 4 MG/2 ML VIAL ONE ×4 (09:30→16:44)
[2023-07-09] MEDS ORDERED: NA CHLORIDE 0.9% 1,000 ML ONE (09:30)
[2023-07-09 09:36] LABS: Absolute Basophils 0.1 K/uL (0-0.5); Absolute Eosinophils 0.3 K/uL (0-0.5); Absolute Monocytes 0.7 K/uL (0.1-1.3); Absolute Neutrophil 5.4 K/uL (1.8-8.0); Basophils % 1.2 % (0-1.3); Eosinophils % 2.8 % (0-4.4); Hematocrit 44.8 % (36.0-45.0); Lymphocytes % 31.7 % (15.3-44.8); MCH 30.3 pg (27.0-35.0); MCHC 33.4 g/dL (32.0-36.0); MCV 90.5 fL (80-100); MPV 10.8 fL (7.6-11.3); Monocytes % 7.5 % (3.3-12.3); Neutrophils % 56.8 % (41.7-73.7); Nucleated Red Blood Cells % 0.2 % (0-0); Platelets 128 thou/uL (152-406); RBC Red Blood Cell Count 4.95 M/uL (3.86-4.86); Red Cell Distribution Width 13.7 % (12.1-15.2)
[2023-07-09 09:52] LABS: Albumin 3.7 g/dL (3.4-5.0); Albumin/Globulin Ratio 0.9 (1.1-1.8); Anion Gap 7.4 mEq/L (5.0-15.0); Bilirubin Total 0.3 mg/dL (0.2-1.0); Potassium 4.4 mEq/L (3.5-5.1); Protein, Total 7.7 g/dL (6.4-8.2)
--- NOTE | 2023-07-09 10:53 | RAD REPORT ---
EXAM DESCRIPTION: US - Abdomen Exam Limited - 07/09/2023 10:20 am CLINICAL HISTORY: Abdominal pain. COMPARISON: 2016 FINDINGS: 2.2 centimeter gallstone within the gallbladder fundus. 2 millimeter gallbladder polyp. The wall is not thickened The biliary tree is normal caliber. IMPRESSION: Cholelithiasis without evidence of cholecystitis
--- NOTE | 2023-07-09 11:35 | ER ---
Nurse's Notes [facility] [place] Name: Avis Adame Age: 48 yrs Sex: Female : 1975 Arrival Date: 07/09/2023 Time: 08:40 Bed 6 Private MD: Diagnosis: Epigastric abdominal tenderness;Other cholelithiasis without obstruction;Acute cholecystitis Presentation: 07/08 08:48 Chief complaint: Chief complaint: Patient states: RUQ pain x 1 1/2 hours ago, pt states aa5 "It's my gallbladder". 08:48 Coronavirus screen: At this time, the client does not indicate any symptoms associated aa5 with coronavirus-19. Ebola Screen: Patient denies travel to an Ebola-affected area in the 21 days before illness onset. Initial Sepsis Screen: Does the patient meet any 2 criteria? No. Patient's initial sepsis screen is negative. Does the patient have a suspected source of infection? No. Patient's initial sepsis screen is negative. Risk Assessment: Do you want to hurt yourself or someone else? Patient reports no desire to harm self or others. Onset of symptoms was July 09, 2023. 08:48 Method Of Arrival: Ambulatory aa5 08:48 Acuity: TOO 3 aa5 BAIL ATTACHER: 12:08 LMP N/A - , Not mb9 Historical: - Allergies: 12:07 PENICILLINS; mb9 - PMHx: 08:48 Anxiety; Hypertension; Sleep Apnea; aa5 - PSHx: 08:48 Appendectomy; section; aa5 09:50 hysterectomy; iw - Immunization history:: Adult Immunizations unknown. - Social history:: Smoking status: Patient reports the use of cigarette tobacco products, smokes one pack cigarettes per day. Screenin:08 [facility] ED Fall Risk Assessment (Adult) History of falling in the last 3 months, mb9 including since admission No falls in past 3 months (0 pts) Confusion or Disorientation No (0 pts) Intoxicated or Sedated No (0 pts) Impaired Gait No (0 pts) Mobility Assist Device Used No (0 pt) Altered Elimination No (0 pt) Score/Fall Risk Level 0 - 2 = Low Risk Oriented to surroundings, Maintained a safe environment, Educated pt \\T\\ family on fall prevention, incl call for assistance when getting out of bed. Abuse screen: Denies threats or abuse. Nutritional screening: No deficits noted. Tuberculosis screening: No symptoms or risk factors identified. Assessment: 09:46 General: Appears uncomfortable, Behavior is cooperative, anxious. Pain: Complains of iw pain in right upper quadrant and right lower quadrant Pain radiates to left upper quadrant and left lower quadrant. Neuro: Level of Consciousness is awake, alert, obeys commands, Oriented to person, place, time, situation, Moves all extremities. Full function. Cardiovascular: Patient's skin is warm and dry. Respiratory: Respiratory effort is even, unlabored, Respiratory pattern is regular. GI: Abd is soft X 4 quads Reports upper abdominal pain. Derm: Skin is intact, is healthy with good turgor. Musculoskeletal: Range of motion: intact in all extremities. 10:09 Reassessment: pt refused CT scan at this time, Dr. Arevalo notified. iw 11:02 Reassessment: Patient appears in no apparent distress at this time. Patient and/or hb family updated on plan of care and expected duration. Pain level reassessed. Patient is alert, oriented x 3, equal unlabored respirations, skin warm/dry/pink. 12:04 Reassessment: Patient appears in no apparent distress at this time. Patient and/or hb family updated on plan of care and expected duration. Pain level reassessed. Patient is alert, oriented x 3, equal unlabored respirations, skin warm/dry/pink. 13:00 Reassessment: Patient appears in no apparent distress at this time. Patient and/or hb family updated on plan of care and expected duration. Pain level reassessed. Patient is alert, oriented x 3, equal unlabored respirations, skin warm/dry/pink. 14:00 Reassessment: Patient appears in no apparent distress at this time. Patient and/or hb family updated on plan of care and expected duration. Pain level reassessed. Patient is alert, oriented x 3, equal unlabored respirations, skin warm/dry/pink. Vital Signs: 08:48 BP 158 / 98; Pulse 86; Resp 19 S; Temp 98.2(O); Pulse Ox 99% on R/A; Weight 101.15 kg aa5 (R); Height 5 ft. 7 in. (R); 09:48 BP 126 / 83; Pulse 97; Resp 18; Pulse Ox 95% on R/A; Pain 10/10; iw 11:02 BP 136 / 87; Pulse 61; Resp 16; Pulse Ox 99% on R/A; hb 12:04 BP 134 / 76; Pulse 74; Resp 16; Pulse Ox 100% ; hb 14:00 BP 132 / 72; Pulse 70; Resp 16; Pulse Ox 99% on R/A; hb 08:48 Body Mass Index 34.93 (101.15 kg, 170.18 cm) aa5 09:48 Pain Scale: Adult iw ED Course: 08:42 Patient arrived in ED. rg4 08:48 Arm band placed on. aa5 09:10 Triage completed. aa5 09:10 Junito Arevalo MD is Attending Physician. criss 09:12 Alexia Shore, RN is Primary Nurse. hb 09:15 Initial lab(s) drawn, by me, sent to lab. Inserted saline lock: 20 gauge in right iw antecubital area, using aseptic technique. Blood collected. 09:58 Attempted EKG patient stated that she knows its not her heart so she doesn't need it . bc6 10:11 EKG done, by ED staff, reviewed by Junito Arevalo MD. mb9 10:21 US Abdomen Limited In Process Unspecified. EDMS 11:16 Patient requests pain medication. mb9 11:33 Ibrahima Fuller MD is Hospitalizing Provider. criss 11:[address] via wheelchair. mb9 12:[address] back from CT. mb9 12:07 Patient has correct armband on for positive identification. Placed in gown. Bed in low mb9 position. Call light in reach. Side rails up X 1. Client placed on continuous cardiac and pulse oximetry monitoring. NIBP monitoring applied. 12:07 Inserted saline lock: 22 gauge in left antecubital area, using aseptic technique. mb9 12:07 IV discontinued, intact, bleeding controlled, No redness/swelling at site. Pressure mb9 dressing applied, Right AC IV infiltrated while in CT. 12:08 Primary Nurse role handed off by Alexia Shore, RN mb9 12:08 Kaya Lai, LUIS EDUARDO is Primary Nurse. mb9 12:08 Provided Education on: press call light if needing anything. mb9 12:08 No provider procedures requiring assistance completed. mb9 12:09 Patient requests pain medication. mb9 Administered Medications: 09:35 Drug: fentaNYL (PF) IVP 50 mcg IVP once Route: IVP; Site: right antecubital; iw 09:50 Follow up: Response: No adverse reaction hb 09:36 Drug: NS 0.9% IV 1000 ml IV at 1 bolus Per protocol; 1000 mL bolus Route: IV; Rate: 1 iw bolus; Site: right antecubital; 10:40 Follow up: Response: No adverse reaction; IV Status: Completed infusion; IV Intake: hb 1000ml 11:09 Follow up: Response: No adverse reaction; IV Status: Completed infusion mb9 09:36 Drug: Famotidine IVP 20 mg IVP once; dilute with 10 mL 0.9% NaCl; give over 2 minutes iw Route: IVP; Site: right antecubital; 10:00 Follow up: Response: No adverse reaction hb 09:36 Drug: Ondansetron IVP 4 mg IVP once; over 2 minutes Route: IVP; Site: right antecubital;iw 10:00 Follow up: Response: No adverse reaction hb 10:09 Drug: fentaNYL (PF) IVP 50 mcg IVP once Route: IVP; Site: right antecubital; iw 10:25 Follow up: Response: No adverse reaction hb 11:45 Not Given (Duplicate Order): piperacillin-tazobactam3.375 grams IVPB once over 60 mins; criss (mix in NS 100 mL) 12:06 Drug: levofloxacin IVPB 750 mg 150 ml IVPB once over 90 mins Volume: 150 ml; Route: mb9 IVPB; Infused Over: 90 mins; Site: left antecubital; 13:41 Follow up: Response: No adverse reaction; IV Status: Completed infusion mb9 12:40 Drug: Ondansetron IVP 4 mg IVP once; over 2 minutes Route: IVP; Site: left antecubital; mb9 13:00 Follow up: Response: No adverse reaction hb 12:45 Drug: HYDROmorphone IVP 1 mg IVP once Route: IVP; Site: left antecubital; mb9 13:00 Follow up: Response: No adverse reaction hb Medication: 12:08 VIS not applicable for this client. mb9 Intake: 10:40 IV: 1000ml; Total: 1000ml. hb Outcome: 11:34 Decision to Hospitalize by Provider. criss 14:15 Admitted to Med/surg accompanied by tech, via wheelchair, 14:15 Condition: stable 14:15 Instructed on the need for admit, Demonstrated understanding of instructions, 14:30 Patient left the ED. mb9 Signatures: Dispatcher [employer] Junito Wilson MD MD cha Williams, Irene, RN LUIS EDUARDO Asmita Escobar RN RN aa5 Alexia Shore RN RN hb Garcia, Rubi 4 Kaya Lai RN RN mb9 Alina Lawson 6 Corrections: (The following items were deleted from the chart) 09:10 08:48 Chief complaint: aa5 aaLaverne 09:50 09:48 BP 149 / 70; Pulse 97bpm; Resp 18bpm; Pulse Ox 95% RA; [facility] 12:07 08:48 Allergies: NKDA; aa5 mb9
--- NOTE | 2023-07-09 11:35 | EDPHYS ---
Physician Documentation [facility] [place] Name: July Wendi Age: 48 yrs Sex: Female : 1975 Arrival Date: 07/09/2023 Time: 08:40 Bed 6 Private MD: EDWARD Physician Junito Arevalo HPI: 07/08 10:01 This 48 yrs old Female presents to ER via Ambulatory with complaints of criss Abdominal Pain, Flank Pain. 10:01 The patient complains of pain in the right mid back and right low back. 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 - Social history:: Smoking status: Patient reports the use of cigarette tobacco products, smokes one pack cigarettes per day. ROS: 10:01 Constitutional: Negative for fever, chills, and weight loss, Eyes: Negative for injury, criss pain, redness, and discharge, ENT: Negative for injury, pain, and discharge, Neck: Negative for injury, pain, and swelling, Cardiovascular: Negative for chest pain, palpitations, and edema, Respiratory: Negative for shortness of breath, cough, wheezing, and pleuritic chest pain, Back: Negative for injury and pain, : Negative for injury, bleeding, discharge, and swelling, MS/Extremity: Negative for injury and deformity, Skin: Negative for injury, rash, and discoloration, Neuro: Negative for headache, weakness, numbness, tingling, and seizure, Psych: Negative for depression, anxiety, suicide ideation, homicidal ideation, and hallucinations, Allergy/Immunology: Negative for hives, rash, and allergies, Endocrine: Negative for neck swelling, polydipsia, polyuria, polyphagia, and marked weight changes, Hematologic/Lymphatic: Negative for swollen nodes, abnormal bleeding, and unusual bruising, 10:01 Abdomen/GI: Positive for abdominal pain, of the posterior aspect of right lateral abdomen, anterior aspect of right lateral abdomen and right upper quadrant, Exam: 10:01 Constitutional: This is a well developed, well nourished patient who is awake, alert, criss and in no acute distress. Head/Face: Normocephalic, atraumatic. Eyes: Pupils equal round and reactive to light, extra-ocular motions intact. Lids and lashes normal. Conjunctiva and sclera are non-icteric and not injected. Cornea within normal limits. Periorbital areas with no swelling, redness, or edema. ENT: Nares patent. No nasal discharge, no septal abnormalities noted. Tympanic membranes are normal and external auditory canals are clear. Oropharynx with no redness, swelling, or masses, exudates, or evidence of obstruction, uvula midline. Mucous membranes moist. Neck: Trachea midline, no thyromegaly or masses palpated, and no cervical lymphadenopathy. Supple, full range of motion without nuchal rigidity, or vertebral point tenderness. No Meningismus. Chest/axilla: Normal chest wall appearance and motion. Nontender with no deformity. No lesions are appreciated. Cardiovascular: Regular rate and rhythm with a normal S1 and S2. No gallops, murmurs, or rubs. Normal PMI, no JVD. No pulse deficits. Respiratory: Lungs have equal breath sounds bilaterally, clear to auscultation and percussion. No rales, rhonchi or wheezes noted. No increased work of breathing, no retractions or nasal flaring. Abdomen/GI: Soft, non-tender, with normal bowel sounds. No distension or tympany. No guarding or rebound. No evidence of tenderness throughout. Back: No spinal tenderness. No costovertebral tenderness. Full range of motion. Skin: Warm, dry with normal turgor. Normal color with no rashes, no lesions, and no evidence of cellulitis. MS/ Extremity: Pulses equal, no cyanosis. Neurovascular intact. Full, normal range of motion. Neuro: Awake and alert, GCS 15, oriented to person, place, time, and situation. Cranial nerves II-XII grossly intact. Motor strength 5/5 in all extremities. Sensory grossly intact. Cerebellar exam normal. Normal gait. Psych: Awake, alert, with orientation to person, place and time. Behavior, mood, and affect are within normal limits. Vital Signs: 08:48 BP 158 / 98; Pulse 86; Resp 19 S; Temp 98.2(O); Pulse Ox 99% on R/A; Weight 101.15 kg aa5 (R); Height 5 ft. 7 in. (R); 09:48 BP 126 / 83; Pulse 97; Resp 18; Pulse Ox 95% on R/A; Pain 10/10; iw 11:02 BP 136 / 87; Pulse 61; Resp 16; Pulse Ox 99% on R/A; hb 12:04 BP 134 / 76; Pulse 74; Resp 16; Pulse Ox 100% ; hb 14:00 BP 132 / 72; Pulse 70; Resp 16; Pulse Ox 99% on R/A; hb 08:48 Body Mass Index 34.93 (101.15 kg, 170.18 cm) aa5 09:48 Pain Scale: Adult iw MDM: 09:10 Patient medically screened. [facility] 10:03 Differential diagnosis: nephrolithiasis, pyelonephritis, diverticulitis, pancreatitis, criss bowel obstruction, coronary artery disease, cholecystitis, Cholelithiasis, diverticulitis, gastritis, gastroesophageal reflux disease, non-specific abd pain, pancreatitis, Peptic Ulcer Disease. Data reviewed: vital signs, nurses notes, lab test result(s), EKG, radiologic studies, CT scan, plain films, ultrasound. Consideration of Admission/Observation Escalation of care including admission/observation considered. I considered the following discharge prescriptions or medication management in the emergency department Medications were administered in the Emergency Department. See MAR. Test considered but Not performed: MRI: no mrcp. Care significantly affected by the following chronic conditions: Hypertension, anxiety, sleep apnea. 07/08 09:22 Order name: CBC with Diff; Complete Time: 10:01 [facility] 07/08 09:22 Order name: CMP; Complete Time: 10:00 [facility] 07/08 09:22 Order name: Lipase; Complete Time: 10:00 [facility] 07/08 09:22 Order name: Urinalysis w/ reflexes [facility] 07/08 09:22 Order name: PT-INR [facility] 07/08 11:37 Order name: Misc. Lab Test [facility] 07/08 11:45 Order name: Basic Metabolic Panel [facility] 07/08 11:45 Order name: Basic Metabolic Panel [facility] 07/08 11:45 Order name: CBC with Automated Diff [facility] 07/08 11:45 Order name: CBC with Automated Diff [facility] 07/08 11:45 Order name: Lipase [facility] 07/08 11:45 Order name: Lipase [facility] 07/08 11:45 Order name: Liver (Hepatic) Function [facility] 07/08 11:45 Order name: Liver (Hepatic) Function [facility] 07/08 09:22 Order name: US Abdomen Limited; Complete Time: 11:00 [facility] 07/08 11:32 Order name: CT Abd/Pelvis - IV Contrast Only [facility] 07/08 11:45 Order name: Chest Single View XRAY [facility] 07/08 12:12 Order name: RAD; Complete Time: 12:13 [facility] 07/08 12:20 Order name: CT; Complete Time: 12:38 [facility] 07/08 09:22 Order name: EKG; Complete Time: 09:23 [facility] 07/08 09:22 Order name: IV Saline Lock; Complete Time: 09:31 [facility] 07/08 09:22 Order name: Labs collected and sent; Complete Time: 09: [facility] 07/08 09:22 Order name: EKG - Nurse/Tech; Complete Time: 10:11 [facility] Administered Medications: 09:35 Drug: fentaNYL (PF) IVP 50 mcg IVP once Route: IVP; Site: right antecubital; iw 09:50 Follow up: Response: No adverse reaction hb 09:36 Drug: NS 0.9% IV 1000 ml IV at 1 bolus Per protocol; 1000 mL bolus Route: IV; Rate: 1 iw bolus; Site: right antecubital; 10:40 Follow up: Response: No adverse reaction; IV Status: Completed infusion; IV Intake: hb 1000ml 11:09 Follow up: Response: No adverse reaction; IV Status: Completed infusion mb9 09:36 Drug: Famotidine IVP 20 mg IVP once; dilute with 10 mL 0.9% NaCl; give over 2 minutes iw Route: IVP; Site: right antecubital; 10:00 Follow up: Response: No adverse reaction hb 09:36 Drug: Ondansetron IVP 4 mg IVP once; over 2 minutes Route: IVP; Site: right antecubital;iw 10:00 Follow up: Response: No adverse reaction hb 10:09 Drug: fentaNYL (PF) IVP 50 mcg IVP once Route: IVP; Site: right antecubital; iw 10:25 Follow up: Response: No adverse reaction hb 11:45 Not Given (Duplicate Order): piperacillin-tazobactam3.375 grams IVPB once over 60 mins; [facility] (mix in NS 100 mL) 12:06 Drug: levofloxacin IVPB 750 mg 150 ml IVPB once over 90 mins Volume: 150 ml; Route: mb9 IVPB; Infused Over: 90 mins; Site: left antecubital; 13:41 Follow up: Response: No adverse reaction; IV Status: Completed infusion mb9 12:40 Drug: Ondansetron IVP 4 mg IVP once; over 2 minutes Route: IVP; Site: left antecubital; mb9 13:00 Follow up: Response: No adverse reaction hb 12:45 Drug: HYDROmorphone IVP 1 mg IVP once Route: IVP; Site: left antecubital; mb9 13:00 Follow up: Response: No adverse reaction hb Disposition Summary: 07/09/23 11:34 Hospitalization Ordered Notes: Hospitalization Status: Observation criss Provider: Ibrahima Fuller cha Location: Telemetry/MedSurg (observation) criss Condition: Stable criss Problem: new criss Symptoms: have improved criss Bed/Room Type: Standard [facility] Room Assignment: 420(07/09/23 13:45) aa5 Diagnosis - Epigastric abdominal tenderness criss - Other cholelithiasis without obstruction criss - Acute cholecystitis criss Forms: - Medication Reconciliation Form criss - SBAR form criss - Leadership Thank You Letter criss Signatures: Dispatcher [employer] EDMS Junito Arevalo MD MD cha Williams, Irene, RN RN Asmita Ellis RN RN aa5 Kaya Lai RN RN mb9 Alexia Shore RN hb Corrections: (The following items were deleted from the chart) 10:13 10:01 Abdomen Pelvis W Con+CT.RAD.BRZ ordered. EDSD EDMS 12:07 08:48 Allergies: NKDA; aa5 mb9 13:45 11:34 criss aa5
[2023-07-09] MEDS ORDERED: MORPHINE 4 MG/ML SYR IV PRN (11:41)
[2023-07-09] MEDS ORDERED: ACETAMINOPHEN 325 MG TABLET PO PRN (11:47)
[2023-07-09] MEDS ORDERED: Levofloxacin 750mg IV 750 MG/150 ML BAG IV ONE (11:53)
[2023-07-09] MEDS: D5 0.45 NS 1,000 ML IV SCH (12:00)
[2023-07-09] MEDS: Levofloxacin 750mg IV 750 MG/150 ML BAG IV SCH (12:00)
--- NOTE | 2023-07-09 12:11 | RAD REPORT ---
EXAM DESCRIPTION: Jose Enrique Single View07/09/2023 11:59 am CLINICAL HISTORY: Cough COMPARISON: 2020 FINDINGS: The lungs appear clear of acute infiltrate. The heart is normal size IMPRESSION: No acute abnormalities displayed
--- NOTE | 2023-07-09 12:19 | RAD REPORT ---
EXAM DESCRIPTION: CT - Abdomen Pelvis W Contrast - 07/09/2023 11:52 am CLINICAL HISTORY: Abdominal pain COMPARISON: 2016 TECHNIQUE: Computed axial tomography of the abdomen pelvis was obtained. 100 cc Isovue-300 was admin istered intravenously. Oral contrast was not requested which limits evaluation of bowel and appendix All CT scans are performed using dose optimization technique as appropriate and may include automated exposure control or mA/KV adjustment according to patient size. FINDINGS: Mild fatty liver The patient's known large gallstone is not well visualized on this exam The spleen, pancreas, adrenals and kidneys are unremarkable Hysterectomy. Appendectomy. No adnexal mass Moderate amount stool within the colon IMPRESSION: Mild fatty liver Moderate amount stool within the colon
[2023-07-09] MEDS ORDERED: HYDROMORPHONE HCL 1 MG/ML INJ ONE (12:40)
[2023-07-09] MEDS ORDERED: D5 0.45 NS 1,000 ML IV ONE (13:43)
[2023-07-09] MEDS: ONDANSETRON 4 MG/2 ML VIAL IV PRN (14:18)
[2023-07-09] MEDS: METOCLOPRAMIDE 10 MG/2mL INJ ONE ×2 (14:48→20:10)
[2023-07-09] MEDS: Ringers Lactate 1,000 ML IV ONE (15:00)
[2023-07-09 16:08] LABS: PT Prothrombin Time 11.7 SECONDS (9.5-12.5); Protime INR 1.07
[2023-07-09] MEDS ORDERED: propofoL 200 MG/20 ML VIAL IV ONE (16:43)
[2023-07-09] MEDS ORDERED: MIDAZOLAM HCL 2 MG/2 ML INJ ONE (16:43)
[2023-07-09] MEDS ORDERED: LIDOCAINE 2% MPF 5 ML VIAL ONE (16:44)
[2023-07-09] MEDS ORDERED: dexAMETHasone 4 MG/ML VIAL ONE (16:45)
[2023-07-09] MEDS ORDERED: ROCURONIUM 50 MG/5 ML VIAL IV ONE (16:45)
[2023-07-09] MEDS ORDERED: KETOROLAC 30 MG/ML INJ ONE (16:54)
[2023-07-09] MEDS ORDERED: NEOSTIGMINE 1 MG/ML -10 ML VIAL ONE (16:54)
[2023-07-09] MEDS ORDERED: GLYCOPYRROLATE 0.2 MG/ML SYR ONE (16:54)
--- NOTE | 2023-07-09 19:19 | P.HP ---
Date of Service: 07/09/23 PC: This 48-year-old female presented to the emergency room with severe right upper quadrant abdominal pain for diagnosis and treatment. HPC: Patient started experience severe abdominal pain while at work. Could no longer stand up. Came to the emergency room for evaluation and treatment. Describes pain is going straight through to her back, up into her chest. Never had a pain like this before. PSHx: Previous appendectomy, PMHx: Denies any medical problems, Social Hx: Allergic to piperacillin and tazobactam, smokes pack a day Sys R: No cough, wheeze, shortness of breath. No chest pain or palpitations. Denies any urinary complaints O/E: Awake alert vital signs are stable but looks uncomfortable HEENT: Not jaundiced Chest: Air entry equal bilaterally Abd: Mild right upper quadrant tenderness [place]: Intact Data: Has documented gallstones Impression: Cholelithiasis, cholecystitis with biliary colic Plan: I will taken the operating room for a laparoscopic possible open cholecystectomy with a cholangiogram. The risks of this procedure have been discussed. The possibility of bleeding, infection, injury to bile ducts blood vessels and intestines has been described. Possible need for an open and or further surgeries and procedures was outlined. She understands and wants us to proceed.
--- NOTE | 2023-07-09 19:24 | P.OP ---
Preoperative diagnosis: Cholecystitis with cholelithiasis, biliary colic Postoperative diagnosis: The same Primary procedure: Laparoscopic cholecystectomy Secondary procedure: Cholangiogram Other procedure(s): Tap block Anesthesia: General Estimated blood loss: Less than 10 cc Specimen: 1 gallbladder and contents Operative Technique: Patient brought the operating room and placed supine on the table. After the induction of adequate general endotracheal anesthesia, the area of the abdomen was prepped with a DuraPrep solution, she was draped in the usual aseptic manner. A subumbilical incision was made. This is brought down through the skin and subcutaneous tissue. The Visiport was used to enter the peritoneal cavity and created pneumoperitoneum to approximately 12 mmHg. Under direct vision a 5 mm trocar was placed in the upper midline, and 2 other 5 mm trocars on the right lateral side of the abdomen. The patient was then placed in reverse Trendelenburg. The table was turned towards the left. We were now able to visualize the right upper quadrant. A grasper was placed on the fundus of the gallbladder. Another down by Flores's pouch. Applying lateral traction we were able to dissect off numerous adhesions and for between the omentum and the serosal surface of the gallbladder. We cleared the gallbladder down towards Flores's pouch. We reset our retractors and once again applying lateral traction we were finally able to dissect out and expose both the cystic duct and artery. Having obtained the critical view a clip was placed between the gallbladder and the cystic duct. The cystic duct was open. The Cholangiocath was now passed down into the common bile duct, and doing a pressure injection were able to demonstrate the common bile duct which was quite generous in size. No filling defects were noted. Pressure shot allowed us to demonstrate the left and right radicles up in the actual liver itself. The catheter was now removed. Clips were placed on the distal portion of the cystic duct. The cystic duct was now fully transected. Attention was turned towards the cystic artery which was clipped and divided in the usual manner. The gallbladder was now dissected free from the liver bed, placed into an Endo Catch, and brought out through the umbilical trocar site the abdomen was inspected to ensure adequate hemostasis. It was interesting to note the patient has quite a lot of adhesions from the right lobe of the liver to the diaphragmatic and upper abdominal peritoneum. 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 However these adhesions were old scar tissue and not active. We lysed them with a Metzenbaum scissors. These having been freed, the irrigating fluid was aspirated from the peritoneal cavity. Attention was now turned towards the umbilicus. The trocar and the spot having been removed we were now able to close the fascial defect with 2 interrupted sutures of absorbable suture. The rest of the abdomen was inspected to ensure adequate hemostasis. The patient has somewhat scattered adhesions of the omentum to the anterior abdominal wall that in the pelvis we did not see anything that threatened any bowel obstructions etc. They were left alone. Attention was now turned towards the anterior abdominal wall. It was pablo blocked with 0.25% Marcaine. The pneumoperitoneum was now collapsed, the trocars removed, and guero applied to the skin. Once again the incision sites were injected with 0.25% Marcaine. At the end procedure she was stable and sent to the recovery room. Needle sponge instrument count were correct. No drains were placed. Complications: None Transferred to: Recovery Room Condition: Good
[2023-07-09] MEDS ORDERED: HYDROCODONE/APAP 7.5/325 MG TAB PO PRN (19:29)
[2023-07-09] MEDS ORDERED: ONDANSETRON 4 MG/2 ML VIAL IV PRN (19:29)
[2023-07-09] MEDS: PROMETHAZINE INJ 25 MG/ML AMP ONE (19:38)
--- NOTE | 2023-07-09 19:45 | RAD REPORT ---
EXAM DESCRIPTION: RAD - Cholangiogram Oper-Xray Or - 07/09/2023 7:35 pm CLINICAL HISTORY: [facility] COMPARISON: Abdomen Pelvis W Contrast dated 07/09/2023 FINDINGS: Contrast injection performed by operating surgeon. Common bile duct is normal caliber. No evidence of retained common bile duct stone. Total fluoro time: 0.4 minutes
[2023-07-09] MEDS: FENTANYL CITR 100 MCG/2 ML ONE (20:11)
[2023-07-09 20:20] VITALS: O2SAT 97
[2023-07-09 20:44] VITALS: BP 159/86; TEMP 97.4
[2023-07-09] MEDS: FAMOTIDINE 20 MG/2 ML VIAL IV SCH (20:56)
[2023-07-09 22:51] VITALS: BMI 34.9
== END 2023-07-10 00:15 | disposition home or self-care (01) ==
LOC: ER 08:40 → ERHOLD 11:39 → 4TH 13:43
PROVIDERS: ADMIT Surgery; ATTEND Surgery
PROC: BF10YZZ Fluoroscopy of Bile Ducts using Other Contrast (ICD-10-PCS; 2023-07-09)
PROC: 0FT44ZZ Resection of Gallbladder, Percutaneous Endoscopic Approach (ICD-10-PCS; principal; 2023-07-09 14:00)
DX: K80.00 Calculus of gallbladder with acute cholecystitis without obstruction (principal); F17.210 Nicotine dependence, cigarettes, uncomplicated; Z88.0 Allergy status to penicillin
CPT/HCPCS: 47563; 93005; 85025; 36415; 85610; 88304; 83690; 80053; 74177; 74300; 71045; 76705; 94010; 99285; Q9967; J2550; J2704; J1100; J2710; J2765 ×2; J2001; J2250; J3010 ×4; J1170; J2405 ×4; G0378 ×4; J7799; J7120; J7030